=== PATIENT | female | born 1960 | race Caucasian/White ===

== ENCOUNTER 2023-07-13 09:23 | Outpatient (OUT) | payer BC, MEDICARE, SELFPAY ==
--- NOTE | 2023-07-13 09:51 | XR_ITS ---
The [address] [address] Patient Name: FELIZ URBINA MRN: [id number] date: 1960 Sex: F Assigned Patient Location: LAB Current Patient Location: Accession/Order Number: [id number] Exam Date: 07/13/2023 10:00 Report Date: 07/14/2023 01:54 At the request of: ALBA DORANTES Procedure: XR hip RT 2V w/ pelvis EXAM: XR hip RT 2V w/ pelvis HISTORY: Right Hip Pain COMPARISON: None. TECHNIQUE: 3 view study FINDINGS: Overall bony architecture is normal. There is mild hip joint space narrowing bilaterally, more visible on the left than on the right. The symphysis pubis is narrowed. There are findings associated with previous lower lumbar laminectomy and fusion. A stimulator device is projected over the left ilium. XR/XR hip RT 2V w/ pelvis IMPRESSION: Mild hip joint space narrowing bilaterally consistent with early degenerative arthritis. No evidence for acute fracture or traumatic malalignment. Electronically authenticated by: Verónica WARREN Date: 07/14/2023 01:54
[2023-07-13 09:54] LABS: Basophils Absolute Auto 0.1 10^3/uL (0.0-0.1); Basophils Percent Auto 1.2 % (0.2-2.0); Eosinophils Absolute Auto 0.1 10^3/uL (0.0-0.7); Eosinophils Percent Auto 1.8 % (0.9-7.0); Hematocrit 43.1 % (36.0-48.0); Hemoglobin 14.9 g/dL (12.0-16.0); Immature Granulocytes Abs Auto 0.06 10^3/uL (0.00-0.03); Immature Granulocytes Pct Auto 0.8 % (0.0-0.5); Lymphocytes Absolute Auto 2.6 10^3/uL (1.2-3.8); Lymphocytes Percent Auto 33.4 % (20.5-60.0); Mean Corpuscular HGB Conc 34.6 g/dL (29.9-35.2); Mean Corpuscular Hemoglobin 31.8 pg (26.7-34.0); Mean Corpuscular Volume 92.1 fL (81.0-99.0); Monocytes Absolute Auto 0.5 10^3/uL (0.3-0.8); Monocytes Percent Auto 6.8 % (1.7-12.0); Neutrophils Absolute Auto 4.4 10^3/uL (1.4-6.5); Platelet Count 296 10^3/uL (150-450); Red Blood Count 4.68 10^6/uL (4.20-5.40); Red Cell Distribution Width 12.5 % (11.0-15.0); White Blood Count 7.8 10^3/uL (4.0-11.0)
[2023-07-13 10:55] LABS: Anion Gap 14.5; BUN Creatinine Ratio 21.6; Bilirubin Total 0.6 mg/dL (0.2-1.0); Calcium 9.5 mg/dL (8.5-10.1); Carbon Dioxide 22.7 mmol/L (21.0-32.0); Chloride 104 mmol/L (98-107); Estimated GFR (African America >60 (>=60); Estimated GFR (Non-African Ame >60 (>=60); Glucose 92 mg/dL (74-106); Magnesium 1.8 mg/dL (1.8-2.4); Potassium 4.2 mmol/L (3.5-5.1); Sodium 137 mmol/L (136-145)
[2023-07-13 10:56] LABS: Alanine Aminotransferase 29 U/L (14-59); Albumin Level 3.9 g/dL (3.4-5.0); Alkaline Phosphatase 90 U/L (46-116); Aspartate Amino Transferase 16 U/L (15-37); Chol HDL Ratio 3.7; Cholesterol 182 mg/dL (<=200); Globulin 3.9 g/dL; HDL Cholesterol 49 mg/dL (40-60); Total Protein 7.8 g/dL (6.4-8.2); Triglycerides 124 mg/dL (<=150); VLDL CHOLESTEROL 24.8 mg/dL
[2023-07-13 10:57] LABS: Free T3 1.81 pg/mL (2.18-3.98); Thyroid Stimulating Hormone 1.483 uIU/mL (0.358-3.740)
[2023-07-13 12:25] LABS: Estimated Average Glucose 105 mg/dL; Glycohemoglobin A1C 5.3 % (4.5-6.2)
[2023-07-14 11:09] LABS: Insulin 8.7 uIU/mL (2.6-24.9)
== END 2023-07-13 09:24 | disposition home or self-care (01) ==
LOC: LAB 09:27
PROVIDERS: PCP Family Medicine; Visit Provider Family Medicine
DX: M25.551 Pain in right hip (principal); M16.11 Unilateral primary osteoarthritis, right hip; Z00.00 Encounter for general adult medical examination without abnormal findings; I10 Essential (primary) hypertension
CPT/HCPCS: 36415; 73502; 80053; 80061; 82306; 83036; 83525; 83540; 83735; 84436; 84443; 84481; 85025

== ENCOUNTER 2023-07-23 10:00 | Outpatient (OUT) | payer BC, MEDICARE, SELFPAY ==
--- NOTE | 2023-07-23 | CT_ITS ---
[address] [address] Patient Name: FELIZ URBINA MRN: [id number] date: 1960 Sex: F Assigned Patient Location: CT Current Patient Location: Accession/Order Number: [id number] Exam Date: 07/23/2023 10:47 Report Date: 07/24/2023 07:16 At the request of: ALBA DORANTES Procedure: CT lung screening low-dose EXAMINATION: CT lung screening low-dose HISTORY: Hypertension , shortness of breath COMPARISON: No relevant comparison available. TECHNIQUE: Axial, Coronal, and Sagittal images were created without the administration of IV contrast material. Dose reduction techniques were achieved by using automated exposure control and/or adjustment of mA and/or kV according to patient size and/or use of iterative reconstruction technique. FINDINGS: LUNGS: 6 mm nodule within anterior medial left upper lobe at level of hilum. A few 3-4 mm nodules scattered within the lungs. No acute infiltrates or significant chronic interstitial changes. PLEURA: No mass, effusion, or pneumothorax. VASCULATURE: No abnormality. GEOFFREY: No mass or pathologic adenopathy. MEDIASTINUM: No mass or pathologic adenopathy. CARDIAC: No enlargement, pericardial thickening, or significant calcification. AORTA: No aneurysm or dissection. CHEST WALL: No mass or axillary adenopathy BONES: No bone lesion or fracture. LIMITED ABDOMEN: No suspicious findings. Limited images of the upper abdomen. OTHER: Neurostimulator electrode within central spinal canal of mid thoracic spine. CT/CT lung screening low-dose IMPRESSION: 1. Lung-RADS Category 3- Probably benign. Probably benign finding(s)- short term follow up suggested; includes nodules with a low likelihood of becoming a clinically active cancer. Six month LDCT. Electronically authenticated by: ERICKA REYNOLDS Date: 07/24/2023 07:16
--- NOTE | 2023-07-23 | MM_ITS ---
Patient: FELIZ URBINA Exam Date: 07/23/2023 : 1960 Gender:F Ordering : DR George Pantoja . Admission #: [id number] Family : Order #: [id number] CLICK HERE TO VIEW EXAM RADIOLOGY REPORT PROCEDURE: MM TOMOSYNTHESIS SCREENING BI COMPARISON: MG MAMM SCREEN 3D DIANA CAD, 01/08/2022. MG MAMM DIANA SCRN W CAD DIG, 07/01/2016. INDICATIONS: screening mammogram Calculator Name NCI Breast Cancer Risk Assessment Tool 5 Year Breast Cancer Risk 1.20% Lifetime Breast Cancer Risk 4.70% Personal Breast Cancer No Personal Ovarian Cancer No Treatments None Family Cancers Mother with lung cancer at age 42. LOCATION: [facility] BREAST COMPOSITION: Scattered areas fibroglandular density. FINDINGS: DIAGNOSTIC CATEGORY 2--BENIGN FINDING: RIGHT BREAST: No significant suspicious finding. Scattered benign-appearing lymph nodes are present. No significant change has occurred. LEFT BREAST: No significant suspicious finding. Scattered benign-appearing lymph nodes are present. No significant change has occurred. RECOMMENDATIONS: ROUTINE MAMMOGRAM AND CLINICAL EVALUATION IN 12 MONTHS. PLEASE NOTE: A NORMAL MAMMOGRAM DOES NOT EXCLUDE THE POSSIBILITY OF BREAST CANCER. A CLINICALLY SUSPICIOUS PALPABLE LUMP SHOULD BE BIOPSIED. Dictated by: Mamadou Carlos M.D. on 07/23/2023 at 13:38 Approved by: Mamadou Carlos M.D. on 07/23/2023 at 13:42
== END 2023-07-23 10:01 | disposition home or self-care (01) ==
LOC: CT 10:01
PROVIDERS: PCP Family Medicine; Visit Provider Family Medicine
DX: Z12.31 Encounter for screening mammogram for malignant neoplasm of breast (principal); M25.551 Pain in right hip; Z80.1 Family history of malignant neoplasm of trachea, bronchus and lung; Z12.2 Encounter for screening for malignant neoplasm of respiratory organs; F17.210 Nicotine dependence, cigarettes, uncomplicated
CPT/HCPCS: 71271; 77063; 77067

== ENCOUNTER 2023-11-12 08:10 | Outpatient (OUT) | payer BC, MEDICARE, SELFPAY ==
--- NOTE | 2023-11-12 08:14 | CT_ITS ---
The [address] [address] Patient Name: FELIZ URBINA MRN: [id number] date: 1960 Sex: F Assigned Patient Location: CT Current Patient Location: CT Accession/Order Number: [id number] Exam Date: 11/12/2023 08:30 Report Date: 11/12/2023 09:07 At the request of: ALBA DORANTES Procedure: CT chest wo con CT chest wo con, 11/12/2023 8:30 AM EST INDICATION: Lung Nodule R91.1 COMPARISON: CT scan of the chest 07/23/2023 TECHNIQUE: Thin-section axial CT images of the chest were acquired without contrast. Supplemental 2D reformatted images were generated and reviewed as needed. Dose reduction techniques were achieved by using automated exposure control and/or adjustment of mA and/or kV according to patient size and/or use of iterative reconstruction technique. FINDINGS: Heart size within normal limits. No pericardial effusion. Moderate coronary artery calcification and calcified atherosclerotic change within a normal caliber aorta. No mediastinal or axillary lymphadenopathy. No central endobronchial nodule. Diffuse bronchial wall thickening with focal areas of faint mosaic attenuation. No lobar consolidation, pleural effusion or pneumothorax. Multiple 2 to 3 mm juxtapleural nodules right upper lobe, grossly unchanged. 3 to 4 mm noncalcified nodules bilaterally grossly unchanged. No new suspicious pulmonary nodule. Reference nodules as follows: Stable 4 mm left upper lobe nodule (3, 28) 5 mm left upper lobe nodule, previously 6 mm (3, 39) Stable 4 mm left upper lobe juxtapleural nodule (3, 38) Stable 4 mm right lower lobe nodule (3, 46) Cholecystectomy. Spondylosis Spinal stimulator electrodes epidural space thoracic spine. No acute fracture. CT/CT chest wo con IMPRESSION: Stable subcentimeter pulmonary nodules. Lung RADS category 2: Benign. LT CT scan of the chest in one year recommended. Electronically authenticated by: JACKELYN PAGE Date: 11/12/2023 09:07
[2023-11-12 15:44] LABS: Thyroid Stimulating Hormone 1.485 uIU/mL (0.358-3.740)
[2023-11-12 15:49] LABS: Free T4 0.97 ng/dL (0.76-1.46)
== END 2023-11-12 08:11 | disposition home or self-care (01) ==
PROVIDERS: PCP Family Medicine; Visit Provider Family Medicine
DX: R91.1 Solitary pulmonary nodule (principal); R79.89 Other specified abnormal findings of blood chemistry
CPT/HCPCS: 36415; 71250; 84439; 84443

== ENCOUNTER 2024-06-01 10:23 | Outpatient (OUT) | payer BC, MEDICARE, SELFPAY ==
--- OUTSIDE RECORDS SUMMARY | 2024-06-01 10:43 | XMS_ITS | CCD ---
Author Organization [facility] Care Team Providers Care Strip Catcher Name Role Phone JAYNA, DR WILLIS Attending Unavailable JASONY, DR WILLIS Primary Care Unavailable JASONY, DR WILLIS Admitting Unavailable HOY, DR WILLIS Attending Unavailable JASONY, DR WILLIS Consulting Unavailable JASONY, DR WILLIS Primary Care Unavailable HOY, DR WILLIS Admitting Unavailable HOY, DR WILLIS Consulting Unavailable HOY, DR WILLIS Primary Care Unavailable JAYNA, DR WILLIS Admitting Unavailable JAYNA, DR WILLIS Attending Unavailable DR MAMADOU CARLOS Consulting Unavailable Problems Active Problems Problem Classification Problem Date Documented Date Episodic/Chronic Diabetes mellitus without complication (1 source) Type 2 diabetes mellitus without complications; Translations: [TYPE 2 DM WITHOUT COMPLICATIONS] Onset: 01-10-2022 Chronic Essential hypertension (1 source) Essential (primary) hypertension; Translations: [ESSENTIAL PRIMARY HYPERTENSION] Onset: 01-10-2022 Chronic Spondylosis; intervertebral disc disorders; other back problems (1 source) Other intervertebral disc displacement, lumbar region; Translations: [OTH IV DISC DISPLACEMENT LUMBAR RGN] Onset: 01-10-2022 Chronic Past or Other Problems Problem Classification Problem Date Documented Da te Episodic/Chronic Other bone disease and musculoskeletal deformities (1 source) Other specified disorders of bone density and structure, unspecified site; Translations: [OTH D/O BONE DEN STRUCT UNS SITE] Onset: 01-10-2022 Episodic Other screening for suspected conditions (not mental disorders or infectious disease) (5 sources) Encounter for screening mammogram for malignant neoplasm of breast; Translations: [Encounter for screening for osteoporosis] Onset: 01-08-2022 Episodic Results Test Name Value Interpretation Reference Range Facil ity Patient Letter FTMCon 2022 Patient Letter [facility] May 25, 2023 FELIZ URBINA [address] [place] [address] : 1960 Dear Feliz, This is a SECOND ATTEMPT to remind you that you are due for an appointment with [facility]. Please contact our office at [phone] to schedule an appointment at your earliest convenience. Thank you, [facility] Reminderson 05-25-2023 Reminders - From: Kristine Peralta To: [facility] - Reminders/Recalls; Sent: 04/08/2023 15:25:27 EDT Show up: 04/08/2023 15:26:00 EDT Subject: Ambulatory Reminder Reminder/Recall 10 year colon recall melanie mueller 04/03 first recall letter second recall letter Normal [facility] Patient Letter FTMCon 2022 Patient Letter FT April 13, 2023 [facility] [address] : 1960 Dear Feliz, This is a reminder that you are due for an appointment with [facility]. Please contact our office at [phone] to schedule an appointment at your earliest convenience. Thank you, [facility] CBC AUTO DIFFon 09-01-2022 BASO # 0.1 103/ul Normal 0.0-0.1 [facility] Comment on above: Performed By: #### C BC #### [facility] [address] [place] [address] Dr. Sai Rice Basophils/100 WBC (Bld) 1.2 % Normal 0.2-2.0 [facility] Comment on above: Performed By: #### C BC #### [facility] [address] [place] [address] Dr. Sai Rice EO # 0.3 103/ul Normal 0.0-0.7 [facility] Comment on above: Performed By: #### C BC #### [facility] [address] [place] [address] Dr. Sai Rice Eosinophils/100 WBC (Bld) 3.4 % Normal 0.9-7.[address] [facility] Comment on above: Performed By: #### C BC #### [facility] [address] [place] [address] Dr. Sai Rice Erythrocyte distribution width (RBC) [Ratio] 12.9 % Normal 11.0-15.[address] [facility] Comment on above: Performed By: #### C BC #### [facility] [address] [place] [address] Dr. Sai Rice Hematocrit (Bld) [Volume fraction] 40.9 % Normal 36.0-48.[address] [facility] Comment on above: Performed By: #### C BC #### [facility] [address] [place] [address] Dr. Sai Rice Hemoglobin (Bld) [Mass/Vol] 14.4 g/dL Normal 12.0-16.[address] [facility] Comment on above: Performed By: #### C BC #### [facility] [address] [place] [address] Dr. Sai Rice IG # 0.02 10e3/ul Normal 0.00-0.[address] [facility] Comment on above: Performed By: #### C BC #### [facility] [address] [place] [address] Dr. Sai Rice IG % 0.3 % Normal 0.0-0.5 [facility] Comment on above: Performed By: #### C BC #### [facility] [address] [place] [address] Dr. Sai Rice LYMPH # 2.3 103/ul Normal 1.2-3.8 [facility] Comment on above: Performed By: #### C BC #### [facility] [address] [place] [address] Dr. Sai Rice Lymphocytes/100 WBC (Bld) 31.1 % Normal 20.5-60.[address] [facility] Comment on above: Performed By: #### C BC #### [facility] [address] [place] [address] Dr. Sai Rice MANUAL DIFF REQ NO Normal [facility] Comment on above: Performed By: #### C BC #### [facility] [address] [address] [address] Sai Rice MCH (RBC) [Entitic mass] 32.0 pg Normal 26.7-34.[address] [facility] Comment on above: Performed By: #### C BC #### [facility] [address] [place] [address] Dr. Sai Rice MCHC (RBC) [Mass/Vol] 35.2 g/dL Normal 29.9-35.[address] [facility] Comment on above: Performed By: #### C BC #### [facility] [address] [place] [address] Dr. Sai Rice MCV (RBC) [Entitic vol] 90.9 fL Normal 81.0-99.[address] [facility] Comment on above: Performed By: #### C BC #### [facility] [address] [place] [address] Dr. Sai Rice MONO # 0.6 103/ul Normal 0.3-0.[address] [facility] Comment on above: Performed By: #### C BC #### [facility] [address] [place] [address] Dr. Sai Rice Monocytes/100 WBC (Bld) 8.3 % Normal 1.7-12.[address] [facility] Comment on above: Performed By: #### C BC #### [facility] [address] [place] [address] Dr. Sai Rice NEUT # 4.1 103/ul Normal 1.4-6.[address] [facility] Comment on above: Performed By: #### C BC #### [facility] [address] [place] [address] Dr. Sai Rice Neutrophils/100 WBC (Bld) 55.7 % Normal 43.0-75.[address] [facility] Comment on above: Performed By: #### C BC #### [facility] [address] [place] [address] Dr. Sai Rice Platelet mean volume (Bld) [Entitic vol] 10.0 fL Normal 9.5-13.[address] [facility] Comment on above: Performed By: #### C BC #### [facility] [address] [place] [address] Dr. Sai Rice PLT 268 103/ul Normal 150-[address] [facility] Comment on above: Performed By: #### C BC #### [facility] [address] [place] [address] Dr. Sai Rice RBC 4.50 106/ul Normal 4.20-5.[address] [facility] Comment on above: Performed By: #### C BC #### [facility] [address] [place] [address] Dr. Sai Rice WBC 7.3 103/ul Normal 4.0-11.[address] [facility] Comment on above: Performed By: #### C BC #### [facility] [address] [place] [address] Dr. Sai Rice FREE THYROXINE INDEX T7on FTI 2.07 Normal 1.30-4.[address] [facility] Comment on above: Performed By: #### L IPID, T7, CMP, TSH #### [facility] [address] [place] [address] Dr. Sai Rice T3U 35.0 % Normal 30.0-39.[address] [facility] Comment on above: Performed By: #### L IPID, T7, CMP, TSH #### [facility] [address] [place] [address] Dr. Sai Rice T4 [Mass/Vol] 5.90 ug/dL Normal 4.80-13.90 [facility] Comment on above: Performed By: #### L IPID, T7, CMP, TSH #### [facility] [address] [place] [address] Dr. Sai Rice GLYCOHEMOGLOBIN A1Con 2021 ADA RECOMMENDATION SEE BELOW Normal [facility] Comment on above: Result Comment: ADA RECOMMENDED LIMIT 4.0 - 6.0 ADA THERAPEUTIC TARGET < 7.0 ACTION SUGGESTED > 7.0 Performed By: #### A 1C #### [facility] [address] [address] [address] Sai Rice Glucose [Mass/Vol] 111 mg/dL Normal [facility] Comment on above: Performed By: #### A 1C #### [facility] [address] [address] [address] Sai Rice HbA1c (Bld) [Mass fraction] 5.5 % Normal 4.5-6.[address] [facility] Comment on above: Performed By: #### A 1C #### [facility] [address] [address] [address] Sai Rice IRONon 09-01-2022 Iron [Mass/Vol] 59.0 ug/dL Normal 50.0-170.0 [facility] Comment on above: Performed By: #### V ITAD, IRON #### [facility] [address] [place] [address] Dr. Sai Rice LIPID PROFILEon 09-01-2022 CHOL-HDL RATIO NORM SEE BELOW Normal [facility] Comment on above: Result Comment: 3.3 - 4.4 LOW RISK 4.4 - 7.1 AVERAGE RISK 7.1 - 11.0 MODERATE RISK >11.0 HIGH RISK Performed By: #### L IPID, T7, CMP, TSH #### [facility] [address] [place] [address] Dr. Sai Rice Cholesterol [Mass/Vol] 169 mg/dL Normal <=[address] [facility] Comment on above: Performed By: #### L IPID, T7, CMP, TSH #### [facility] [address] [address] [address] Sai Rice Cholesterol in HDL [Mass/Vol] 49 mg/dL Normal 40-[address] [facility] Comment on above: Performed By: #### L IPID, T7, CMP, TSH #### [facility] [address] [address] [address] Sai Rice Cholesterol in LDL [Mass/Vol] 92.4 mg/dL Normal [facility] Comment on above: Performed By: #### L IPID, T7, CMP, TSH #### [facility] [address] [place] [address] Dr. Sai Rice Cholesterol.total/Cho lesterol in HDL [Mass ratio] 3.4 {ratio} Normal [facility] Comment on above: Performed By: #### L IPID, T7, CMP, TSH #### [facility] [address] [address] [address] Sai Rice HDL NORMAL > or = 60 mg/dl - LOW CARDIOVASCULAR RISK <40 mg/dl - HIGH CARDIOVASCULAR RISK Normal [facility] Comment on above: Performed By: #### L IPID, T7, CMP, TSH #### [facility] [address] [address] [address] Sai Rice LDL CALC NORMAL SEE BELOW Normal [facility] Comment on above: Result Comment: <100 mg/dl OPTIMAL 100 - 129 mg/dl NEAR OR ABOVE OPTIMAL 130 - 159 mg/dl BORDERLINE HIGH 160 - 189 mg/dl HIGH >190 mg/dl VERY HIGH Performed By: #### L IPID, T7, CMP, TSH #### [facility] [address] [address] [address] Sai Rice Triglyceride [Mass/Vol] 138 mg/dL Normal <=[address] [facility] Comment on above: Performed By: #### L IPID, T7, CMP, TSH #### [facility] [address] [address] [address] Sai Rice VLDL CALC 27.6 mg/dL Normal [facility] Comment on above: Performed By: #### L IPID, T7, CMP, TSH #### [facility] [address] [address] [address] Sai Rice PROF 14(COMP METB)on 022 Albumin [Mass/Vol] 3.8 g/dL Normal 3.4-5.0 [facility] Comment on above: Performed By: #### L IPID, T7, CMP, TSH #### [facility] [address] [address] [address] Sai Rice Albumin/Globulin [Mass ratio] 1.0 {ratio} Normal [facility] Comment on above: Performed By: #### L IPID, T7, CMP, TSH #### [facility] [address] [address] [address] Sai Rice ALP [Catalytic activity/Vol] 78 U/L Normal 46-[address] [facility] Comment on above: Performed By: #### L IPID, T7, CMP, TSH #### [facility] [address] [address] [address] Sai Rice ALT [Catalytic activity/Vol] 21 U/L Normal 14-[address] [facility] Comment on above: Performed By: #### L IPID, T7, CMP, TSH #### [facility] [address] [address] [address] Sai Rice Anion gap [Moles/Vol] 9.0 mmol/L Normal [facility] Comment on above: Performed By: #### L IPID, T7, CMP, TSH #### [facility] [address] [place] [address] Dr. Sai Rice AST [Catalytic activity/Vol] 15 U/L Normal 15-[address] [facility] Comment on above: Performed By: #### L IPID, T7, CMP, TSH #### [facility] [address] [address] [address] Sai Rice Bilirubin [Mass/Vol] 0.4 mg/dL Normal 0.2-1.[address] [facility] Comment on above: Performed By: #### L IPID, T7, CMP, TSH #### [facility] [address] [address] [address] Sai Rice Calcium [Mass/Vol] 9.2 mg/dL Normal 8.5-10.1 [facility] Comment on above: Performed By: #### L IPID, T7, CMP, TSH #### [facility] [address] [address] [address] Sai Rice Chloride [Moles/Vol] 106 mmol/L Normal 98-[address] [facility] Comment on above: Performed By: #### L IPID, T7, CMP, TSH #### [facility] [address] [address] [address] Sia Rice CO2 [Moles/Vol] 28.2 mmol/L Normal 21.0-32.0 [facility] Comment on above: Performed By: #### L IPID, T7, CMP, TSH #### [facility] [address] [address] [address] Sai Rice Creatinine [Mass/Vol] 0.76 mg/dL Normal 0.55-1.[address] [facility] Comment on above: Performed By: #### L IPID, T7, CMP, TSH #### [facility] [address] [address] [address] Sai Rice EGFR-AF ISRAELI >60 Normal >=60 [facility] Comment on above: Performed By: #### L IPID, T7, CMP, TSH #### [facility] [address] [place] [address] Dr. Sai Rice EGFR-NON AF ISRAELI >60 Normal >=[address] [facility] Comment on above: Performed By: #### L IPID, T7, CMP, TSH #### [facility] [address] [place] [address] Dr. Sai Rice Globulin (S) [Mass/Vol] 3.8 g/dL Normal [facility] Comment on above: Performed By: #### L IPID, T7, CMP, TSH #### [facility] [address] [address] [address] Sai Rice Glucose [Mass/Vol] 90 mg/dL Normal 74-106 [facility] Comment on above: Performed By: #### L IPID, T7, CMP, TSH #### [facility] [address] [address] [address] Sai Rice Potassium [Moles/Vol] 4.2 mmol/L Normal 3.5-5.1 [facility] Comment on above: Performed By: #### L IPID, T7, CMP, TSH #### [facility] [address] [address] [address] Sai Rice Protein [Mass/Vol] 7.6 g/dL Normal 6.4-8.2 [facility] Comment on above: Performed By: #### L IPID, T7, CMP, TSH #### [facility] [address] [place] [address] Dr. Sai Rice Sodium [Moles/Vol] 139 mmol/L Normal 136-145 [facility] Comment on above: Performed By: #### L IPID, T7, CMP, TSH #### [facility] [address] [place] [address] Dr. Sai Rice Urea nitrogen [Mass/Vol] 16.0 mg/dL Normal 7.0-18.[address] [facility] Comment on above: Performed By: #### L IPID, T7, CMP, TSH #### [facility] [address] [place] [address] Dr. Sai Rice Urea nitrogen/Creatinine [Mass ratio] 21.1 mg/mg Normal [facility] Comment on above: Performed By: #### L IPID, T7, CMP, TSH #### [facility] [address] [place] [address] Dr. Sai Rice TSHon 09-01-2022 TSH 2.761 uIU/mL Normal 0.358-3.740 [facility] Comment on above: Performed By: #### L IPID, T7, CMP, TSH #### [facility] [address] [place] [address] Dr. Sai Rice VITAMIN D 25 OHon 09-01-2022 VIT D 25-OH 12.1 ng/mL Normal [facility] Comment on above: Performed By: #### V LEANN, IRON #### [facility] [address] [place] [address] Dr. Sai Rice VIT D RANGES SEE BELOW Normal [facility] Comment on above: Result Comment: <20 ng/mL Vit D deficient 20 - <30 ng/mL Vit D insufficient 30 - 100 ng/mL Vit D sufficient >100 ng/mL Potential Toxicity Performed By: #### V ITAD, IRON #### [facility] [address] [place] [address] Dr. Sai Rice MG MAMM SCREEN 3D DIANA CADon 01-08-2022 MG MAMM SCREEN 3D DIANA CAD Patient: FELIZ URBINA Exam Date: 01/08/2022 : 1960 Gender:F Ordering : DR ALBA DORANTES . Admission #: [id number] Family : Order #: [id number] CLICK HERE TO VIEW EXAM RADIOLOGY REPORT PROCEDURE: MAMMOGRAM SCREENING 3D BILATERAL CAD COMPARISON: MG MAMM DIANA SCRN W CAD DIG, 07/01/2016. INDICATIONS: Screening mammography Calculator Name NCI Breast Cancer Risk Assessment Tool 5 Year Breast Cancer Risk 1.10% Lifetime Breast Cancer Risk 5.00% Personal Breast Cancer No Personal Ovarian Cancer No Treatments None Family Cancers Mother with lung cancer at age 42. LOCATION: [facility] BREAST COMPOSITION: Scattered areas fibroglandular density. FINDINGS: DIAGNOSTIC CATEGORY 2--BENIGN FINDING: RIGHT BREAST: No significant suspicious finding. No significant change has occurred. LEFT BREAST: No significant suspicious finding. Stable lymph nodes and asymmetric fibroglandular tissue within the posterior upper-outer quadrant. No significant change has occurred. RECOMMENDATIONS: ROUTINE MAMMOGRAM AND CLINICAL EVALUATION IN 12 MONTHS. PLEASE NOTE: A NORMAL MAMMOGRAM DOES NOT EXCLUDE THE POSSIBILITY OF BREAST CANCER. A CLINICALLY SUSPICIOUS PALPABLE LUMP SHOULD BE BIOPSIED. Dictated by: Mamadou Carlos M.D. on 01/08/2022 at 15:37 Approved by: Mamadou Carlos M.D. on 01/08/2022 at 15:[address] [facility] XR DEXA BONE DENSITYon 01-08 XR DEXA BONE DENSITY EXAMINATION: XR DEX A BONE DENSITY, 01/08/2022 11:12 AM EDT HISTORY: Screening for osteoporosis COMPARISON: None. TECHNIQUE: Dual-energy X-ray absorptiometry (DEXA) bone density study performed for the axial skeleton. FINDINGS: FOREARM ANALYSIS: Average bone mineral density is 0.698 g/cm2. T-score (standard deviation relative to young adult mean): -0.2 . HIP ANALYSIS: Lowest bone mineral density is within the left femoral trochanter, 0.721 g/cm2. T-score (standard deviation relative to young adult mean): -1.1 . IMPRESSION: World Perez Organization Classification: Osteopenia - Moderate Fracture Risk Electronically authenticated by: MAMADOU CARLOS Date: 2022-01-08 14:[address] [facility] Encounters Encounter Date Encounter Type Care Provider Facility Start: 04-08-2023 ambulatory Facility:[facility] Start: 09-03-2022 Encounter for genera l adult medical examination without abnormal findings DR ALBA DORANTES [facility] Start: 09-01-2022 End: 09-02-[address] ALBA DORANTES Facility:[facility] Start: 09-01-2022 End: 09-02-2022 Encounter for general adult medical examination without abnormal findings DR ALBA DORANTES Facility:[facility] Start: 06-05-[address] ALBA DORANTES Facility :[facility] Start: 01-08-2022 End: 01-09-[address] ALBA DORANTSE Facility:[facility] Payers Date Payer Category Payer Medicare [id number] 2018 Unknown 1960 Medicare [id number] 1960 Self-pay [id number] 1960 Unknown [id number] 1960 Unknown [id number] 2.16.84 [id number] 1960 Unknown [id number] 2.16.84 [id number] 1960 Unknown [id number] 2.16.84 [id number] 1960 Unknown [id number] 2.16.8 [id number] Summary Purpose Family History No Family History Records FoundNo Family History Records Found Advance Directives No Advanced Directives Records FoundNo Advanced Directives Records Found Additional Source Comments INFORMATION SOURCE (unrecogn ized section and content) DATE CREATED AUTHOR 10/01/2022 [facility] DATE CREATED AUTHOR AUTHOR'S ORGANIZ ATION 05/25/2023 [facility] FOR RECORDS PERTAINING TO PATIENTS WHO ARE OR HAVE BEEN ENROLLED IN A CHEMICAL DEPENDENCY/SUBSTANCEABUSE PROGRAM, SOME INFORMATION MAY BE OMITTED. This clinical summary was aggregated from multiple sources. Caution should be exercised in using it in the provision of clinical care. This summary normalizes information from multiple sources, and as a consequence, information in this document may materially change the coding, format and clinical context of patient data. In addition, data may be omitted in some cases. CLINICAL DECISIONS SHOULD BE BASED ON THE PRIMARY CLINICAL RECORDS. [email or web address]. provides no warranty or guarantee of the accuracy or completeness of information in this document.
[2024-06-01 11:24] LABS: Basophils Absolute Auto 0.1 10^3/uL (0.0-0.1); Basophils Percent Auto 1.2 % (0.2-2.0); Eosinophils Absolute Auto 0.3 10^3/uL (0.0-0.7); Eosinophils Percent Auto 3.3 % (0.9-7.0); Hematocrit 43.4 % (36.0-48.0); Immature Granulocytes Abs Auto 0.02 10^3/uL (0.00-0.03); Immature Granulocytes Pct Auto 0.2 % (0.0-0.5); Lymphocytes Absolute Auto 2.8 10^3/uL (1.2-3.8); Lymphocytes Percent Auto 32.8 % (20.5-60.0); Mean Corpuscular HGB Conc 34.6 g/dL (29.9-35.2); Mean Corpuscular Volume 92.5 fL (81.0-99.0); Mean Platelet Volume 10.6 fL (9.5-13.5); Monocytes Absolute Auto 0.8 10^3/uL (0.3-0.8); Monocytes Percent Auto 9.3 % (1.7-12.0); Neutrophils Absolute Auto 4.5 10^3/uL (1.4-6.5); Neutrophils Percent Auto 53.2 % (43.0-75.0); Platelet Count 277 10^3/uL (150-450); Red Blood Count 4.69 10^6/uL (4.20-5.40); Red Cell Distribution Width 12.7 % (11.0-15.0); White Blood Count 8.4 10^3/uL (4.0-11.0)
[2024-06-01 11:53] LABS: Estimated Average Glucose 103 mg/dL; Glycohemoglobin A1C 5.2 % (4.5-6.2)
[2024-06-01 12:04] LABS: Alanine Aminotransferase 25 U/L (14-59); Albumin Globulin Ratio 1.1; Albumin Level 3.9 g/dL (3.4-5.0); Alkaline Phosphatase 85 U/L (46-116); Anion Gap 13.5; Aspartate Amino Transferase 16 U/L (15-37); BUN Creatinine Ratio 18.7; Bilirubin Total 0.7 mg/dL (0.2-1.0); Calcium 9.4 mg/dL (8.5-10.1); Carbon Dioxide 24.7 mmol/L (21.0-32.0); Chloride 104 mmol/L (98-107); Cholesterol 198 mg/dL (<=200); Estimated GFR (African America >60 (>=60); Estimated GFR (Non-African Ame >60 (>=60); Free T3 1.83 pg/mL (2.18-3.98); Globulin 3.4 g/dL; Glucose 86 mg/dL (74-106); HDL Cholesterol 49 mg/dL (40-60); Potassium 4.2 mmol/L (3.5-5.1); Sodium 138 mmol/L (136-145); Thyroid Stimulating Hormone 2.949 uIU/mL (0.358-3.740); Total Protein 7.3 g/dL (6.4-8.2); Triglycerides 219 mg/dL (<=150); VLDL CHOLESTEROL 43.8 mg/dL
[2024-06-02 10:09] LABS: Insulin 5.2 uIU/mL (2.6-24.9)
== END 2024-06-01 10:24 | disposition home or self-care (01) ==
LOC: LAB 10:26
PROVIDERS: PCP Family Medicine; Visit Provider Family Medicine
DX: M51.26 Other intervertebral disc displacement, lumbar region (principal); M25.50 Pain in unspecified joint; I10 Essential (primary) hypertension; E11.9 Type 2 diabetes mellitus without complications; E03.9 Hypothyroidism, unspecified; K21.9 Gastro-esophageal reflux disease without esophagitis; D64.9 Anemia, unspecified
CPT/HCPCS: 36415; 80053; 80061; 83036; 83525; 83540; 84436; 84443; 84481; 85025

== ENCOUNTER 2024-07-06 09:08 | Outpatient (OUT) | payer BC, MEDICARE, SELFPAY ==
--- OUTSIDE RECORDS SUMMARY | 2024-07-06 09:25 | XMS_ITS | CCD ---
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 Please contact our office at [phone] to schedule an appointment at your earliest convenience. Thank you, [facility] Reminderson 05-25-2023 Reminders - From: Kristine Peralta To: [facility] - Reminders/Recalls; Sent: 04/08/2023 15:25:27 EDT Show up: 04/08/2023 15:26:00 EDT Subject: Ambulatory Reminder Reminder/Recall 10 year colon recall melanie mueller 04/03 first recall letter second recall letter Normal [facility] Patient Letter FTMCon 2022 Patient Letter FT April 13, 2023 [facility] [address] [facility] [address] : 1960 Dear Feliz, This is a reminder that you are due for an appointment with [facility]. Please contact our office at [phone] to schedule an appointment at your earliest convenience. Thank you, [facility] CBC AUTO DIFFon 09-01-2022 BASO # 0.1 103/ul Normal 0.0-0.1 [facility] Comment on above: Performed By: #### C BC #### [facility] [address] [place] [address] Dr. Sai Rice Basophils/100 WBC (Bld) 1.2 % Normal 0.2-2.0 [facility] Comment on above: Performed By: #### C BC #### [facility] [address] [place] [address] Dr. Sai Rice EO # 0.3 103/ul Normal 0.0-0.7 [facility] Comment on above: Performed By: #### C BC #### [facility] [address] [place] [address] Dr. Sai Rice Eosinophils/100 WBC (Bld) 3.4 % Normal 0.9-7.0 [facility] Comment on above: Performed By: #### C BC #### [facility] [address] [place] [address] Dr. Sai Rice Erythrocyte distribution width (RBC) [Ratio] 12.9 % Normal 11.0-15.0 [facility] Comment on above: Performed By: #### C BC #### [facility] [address] [place] [address] Dr. Sai Rice Hematocrit (Bld) [Volume fraction] 40.9 % Normal 36.0-48.0 [facility] Comment on above: Performed By: #### C BC #### [facility] [address] [place] [address] Dr. Sai Rice Hemoglobin (Bld) [Mass/Vol] 14.4 g/dL Normal 12.0-16.0 [facility] Comment on above: Performed By: #### C BC #### [facility] [address] [place] [address] Dr. Sai Rice IG # 0.02 10e3/ul Normal 0.00-0.03 [facility] Comment on above: Performed By: #### C BC #### [facility] [address] [place] [address] Dr. Sai Rice IG % 0.3 % Normal 0.0-0.5 [facility] Comment on above: Performed By: #### C BC #### [facility] [address] [place] [address] Dr. Sai Rice LYMPH # 2.3 103/ul Normal 1.2-3.8 [facility] Comment on above: Performed By: #### C BC #### [facility] [address] [place] [address] Dr. Sai Rice Lymphocytes/100 WBC (Bld) 31.1 % Normal 20.5-60.0 [facility] Comment on above: Performed By: #### C BC #### [facility] [address] [place] [address] Dr. Sai Rice MANUAL DIFF REQ NO Normal [facility] Comment on above: Performed By: #### C BC #### [facility] [address] [address] [address] Sai Rice MCH (RBC) [Entitic mass] 32.0 pg Normal 26.7-34.0 [facility] Comment on above: Performed By: #### C BC #### [facility] [address] [place] [address] Dr. Sai Rice MCHC (RBC) [Mass/Vol] 35.2 g/dL Normal 29.9-35.2 [facility] Comment on above: Performed By: #### C BC #### [facility] [address] [place] [address] Dr. Sai Rice MCV (RBC) [Entitic vol] 90.9 fL Normal 81.0-99.0 [facility] Comment on above: Performed By: #### C BC #### [facility] [address] [place] [address] Dr. Sai Rice MONO # 0.6 103/ul Normal 0.3-0.8 [facility] Comment on above: Performed By: #### C BC #### [facility] [address] [place] [address] Dr. Sai Rice Monocytes/100 WBC (Bld) 8.3 % Normal 1.7-12.0 [facility] Comment on above: Performed By: #### C BC #### [facility] [address] [place] [address] Dr. Sai Rice NEUT # 4.1 103/ul Normal 1.4-6.5 [facility] Comment on above: Performed By: #### C BC #### [facility] [address] [place] [address] Dr. Sai Rice Neutrophils/100 WBC (Bld) 55.7 % Normal 43.0-75.0 [facility] Comment on above: Performed By: #### C BC #### [facility] [address] [place] [address] Dr. Sai Rice Platelet mean volume (Bld) [Entitic vol] 10.0 fL Normal 9.5-13.5 [facility] Comment on above: Performed By: #### C BC #### [facility] [address] [place] [address] Dr. Sai Rice PLT 268 103/ul Normal 150-450 [facility] Comment on above: Performed By: #### C BC #### [facility] [address] [place] [address] Dr. Sai Rice RBC 4.50 106/ul Normal 4.20-5.40 [facility] Comment on above: Performed By: #### C BC #### [facility] [address] [place] [address] Dr. Sai Rice WBC 7.3 103/ul Normal 4.0-11.0 [facility] Comment on above: Performed By: #### C BC #### [facility] [address] [place] [address] Dr. Sai Rice FREE THYROXINE INDEX T7on FTI 2.07 Normal 1.30-4.50 [facility] Comment on above: Performed By: #### L IPID, T7, CMP, TSH #### [facility] [address] [place] [address] Dr. Sai Rice T3U 35.0 % Normal 30.0-39.0 [facility] Comment on above: Performed By: #### L IPID, T7, CMP, TSH #### [facility] [address] [place] [address] Dr. Sai Rice T4 [Mass/Vol] 5.90 ug/dL Normal 4.80-13.90 [facility] Comment on above: Performed By: #### L IPID, T7, CMP, TSH #### [facility] [address] [place] [address] Dr. Sai Rice GLYCOHEMOGLOBIN A1Con 2021 ADA RECOMMENDATION SEE BELOW Normal [facility] Comment on above: Result Comment: ADA RECOMMENDED LIMIT 4.0 - 6.0 ADA THERAPEUTIC TARGET < 7.0 ACTION SUGGESTED > 7.0 Performed By: #### A 1C #### [facility] [address] [address] [address] Sai Rice Glucose [Mass/Vol] 111 mg/dL Normal [facility] Comment on above: Performed By: #### A 1C #### [facility] [address] [address] [address] Sai Rice HbA1c (Bld) [Mass fraction] 5.5 % Normal 4.5-6.2 [facility] Comment on above: Performed By: #### A 1C #### [facility] [address] [address] [address] Sai Rice IRONon 09-01-2022 Iron [Mass/Vol] 59.0 ug/dL Normal 50.0-170.0 [facility] Comment on above: Performed By: #### V ITAD, IRON #### [facility] [address] [place] [address] Dr. Sai Rice LIPID PROFILEon 09-01-2022 CHOL-HDL RATIO NORM SEE BELOW Normal [facility] Comment on above: Result Comment: 3.3 - 4.4 LOW RISK 4.4 - 7.1 AVERAGE RISK 7.1 - 11.0 MODERATE RISK >11.0 HIGH RISK Performed By: #### L IPID, T7, CMP, TSH #### [facility] [address] [place] [address] Dr. Sai Rice Cholesterol [Mass/Vol] 169 mg/dL Normal <=200 [facility] Comment on above: Performed By: #### L IPID, T7, CMP, TSH #### [facility] [address] [address] [address] Sai Rice Cholesterol in HDL [Mass/Vol] 49 mg/dL Normal 40-60 [facility] Comment on above: Performed By: #### L IPID, T7, CMP, TSH #### [facility] [address] [address] [address] Sai Rice Cholesterol in LDL [Mass/Vol] 92.4 mg/dL Normal [facility] Comment on above: Performed By: #### L IPID, T7, CMP, TSH #### [facility] [address] [place] [address] Dr. Sai Rice Cholesterol.total/Cho lesterol in HDL [Mass ratio] 3.4 {ratio} Normal [facility] Comment on above: Performed By: #### L IPID, T7, CMP, TSH #### [facility] [address] [address] [address] Sai Rice HDL NORMAL > or = 60 mg/dl - LOW CARDIOVASCULAR RISK <40 mg/dl - HIGH CARDIOVASCULAR RISK Normal [facility] Comment on above: Performed By: #### L IPID, T7, CMP, TSH #### [facility] [address] [address] [address] Sai Rice LDL CALC NORMAL SEE BELOW Normal [facility] Comment on above: Result Comment: <100 mg/dl OPTIMAL 100 - 129 mg/dl NEAR OR ABOVE OPTIMAL 130 - 159 mg/dl BORDERLINE HIGH 160 - 189 mg/dl HIGH >190 mg/dl VERY HIGH Performed By: #### L IPID, T7, CMP, TSH #### [facility] [address] [address] [address] Sai Rice Triglyceride [Mass/Vol] 138 mg/dL Normal <=150 [facility] Comment on above: Performed By: #### L IPID, T7, CMP, TSH #### [facility] [address] [address] [address] Sai Rice VLDL CALC 27.6 mg/dL Normal [facility] Comment on above: Performed By: #### L IPID, T7, CMP, TSH #### [facility] [address] [address] [address] Sai Rice PROF 14(COMP METB)on 022 Albumin [Mass/Vol] 3.8 g/dL Normal 3.4-5.0 [facility] Comment on above: Performed By: #### L IPID, T7, CMP, TSH #### [facility] [address] [address] [address] aSi Rice Albumin/Globulin [Mass ratio] 1.0 {ratio} Normal [facility] Comment on above: Performed By: #### L IPID, T7, CMP, TSH #### [facility] [address] [address] [address] Sai Rice ALP [Catalytic activity/Vol] 78 U/L Normal 46-116 [facility] Comment on above: Performed By: #### L IPID, T7, CMP, TSH #### [facility] [address] [address] [address] Sai Rice ALT [Catalytic activity/Vol] 21 U/L Normal 14-59 [facility] Comment on above: Performed By: #### L IPID, T7, CMP, TSH #### [facility] [address] [address] [address] Sai Rice Anion gap [Moles/Vol] 9.0 mmol/L Normal [facility] Comment on above: Performed By: #### L IPID, T7, CMP, TSH #### [facility] [address] [place] [address] Dr. Sai Rice AST [Catalytic activity/Vol] 15 U/L Normal 15-37 [facility] Comment on above: Performed By: #### L IPID, T7, CMP, TSH #### [facility] [address] [address] [address] Sai Rice Bilirubin [Mass/Vol] 0.4 mg/dL Normal 0.2-1.0 [facility] Comment on above: Performed By: #### L IPID, T7, CMP, TSH #### [facility] [address] [address] [address] Sai Rice Calcium [Mass/Vol] 9.2 mg/dL Normal 8.5-10.1 [facility] Comment on above: Performed By: #### L IPID, T7, CMP, TSH #### [facility] [address] [address] [address] Sai Rice Chloride [Moles/Vol] 106 mmol/L Normal 98-107 [facility] Comment on above: Performed By: #### L IPID, T7, CMP, TSH #### [facility] [address] [address] [address] Sai Rice CO2 [Moles/Vol] 28.2 mmol/L Normal 21.0-32.0 [facility] Comment on above: Performed By: #### L IPID, T7, CMP, TSH #### [facility] [address] [address] [address] Sai Rice Creatinine [Mass/Vol] 0.76 mg/dL Normal 0.55-1.02 [facility] Comment on above: Performed By: #### L IPID, T7, CMP, TSH #### [facility] [address] [address] [address] Sai Rice EGFR-AF TONGAN >60 Normal >=60 [facility] Comment on above: Performed By: #### L IPID, T7, CMP, TSH #### [facility] [address] [place] [address] Dr. Sai Rice EGFR-NON AF TONGAN >60 Normal >=60 [facility] Comment on above: Performed By: #### L IPID, T7, CMP, TSH #### [facility] [address] [place] [address] Dr. Sai Rice Globulin (S) [Mass/Vol] 3.8 g/dL Normal [facility] Comment on above: Performed By: #### L IPID, T7, CMP, TSH #### [facility] [address] [address] [address] Sai Rice Glucose [Mass/Vol] 90 mg/dL Normal 74-106 [facility] Comment on above: Performed By: #### L IPID, T7, CMP, TSH #### [facility] [address] [address] [address] Sai Rice Potassium [Moles/Vol] 4.2 mmol/L Normal 3.5-5.1 [facility] Comment on above: Performed By: #### L IPID, T7, CMP, TSH #### [facility] [address] [address] [address] Sai Rice Protein [Mass/Vol] 7.6 g/dL Normal 6.4-8.2 [facility] Comment on above: Performed By: #### L IPID, T7, CMP, TSH #### [facility] [address] [place] [address] Dr. Sai Rice Sodium [Moles/Vol] 139 mmol/L Normal 136-145 [facility] Comment on above: Performed By: #### L IPID, T7, CMP, TSH #### [facility] [address] [place] [address] Dr. Sai Rice Urea nitrogen [Mass/Vol] 16.0 mg/dL Normal 7.0-18.0 [facility] Comment on above: Performed By: #### L IPID, T7, CMP, TSH #### [facility] [address] [place] [address] Dr. Sai Rice Urea nitrogen/Creatinine [Mass ratio] 21.1 mg/mg Normal [facility] Comment on above: Performed By: #### L IPID, T7, CMP, TSH #### [facility] [address] [place] [address] Dr. Sai Rice TSHon 09-01-2022 TSH 2.761 uIU/mL Normal 0.358-3.740 [facility] Comment on above: Performed By: #### L IPID, T7, CMP, TSH #### [facility] [address] [place] [address] Dr. Sai Rice VITAMIN D 25 OHon 09-01-2022 VIT D 25-OH 12.1 ng/mL Normal [facility] Comment on above: Performed By: #### V LEANN, IRON #### [facility] [address] [place] [address] Dr. Sai Rice VIT D RANGES SEE BELOW Normal [facility] Comment on above: Result Comment: <20 ng/mL Vit D deficient 20 - <30 ng/mL Vit D insufficient 30 - 100 ng/mL Vit D sufficient >100 ng/mL Potential Toxicity Performed By: #### V ITAD, IRON #### [facility] [address] [place] [address] Dr. Sai Rice MG MAMM SCREEN 3D DIANA CADon 01-08-2022 MG MAMM SCREEN 3D DIANA CAD Patient: FELIZ URBINA Exam Date: 01/08/2022 : 1960 Gender:F Ordering : DR ALBA DORANTES . Admission #: [id number] Family : Order #: [id number] CLICK HERE TO VIEW EXAM RADIOLOGY REPORT [...] lung cancer at age 41. LOCATION: [facility] BREAST COMPOSITION: Scattered areas fibroglandular density. FINDINGS: [...] Carlos M.D. on 01/08/2022 at 15:48 Normal [facility] XR DEXA BONE DENSITYon 01-08 [...] by: MAMADOU CARLOS Date: 2022-01-08 14:02 Normal [facility] Encounters Encounter Date Encounter Type Care Provider Facility Start: 04-08-2023 ambulatory Facility:[facility] Start: 09-03-2022 Encounter for genera l adult medical examination without abnormal findings DR ALBA DORANTES [facility] Start: 09-01-2022 End: 09-02-[address] ALBA DORANTES Facility:[facility] Start: 09-01-2022 End: 09-02-2022 Encounter for general adult medical examination without abnormal findings DR ALBA DORANTES Facility:[facility] Start: 06-05-[address] ALBA DORANTES Facility :[facility] Start: 01-08-2022 End: 01-09-[address] ALBA DORANTES Facility:[facility] Payers Date Payer Category Payer Medicare [id number] 2018 Unknown 1960 Medicare [id number] 1960 Self-pay [id number] 1960 Unknown [id number] 1960 Unknown [id number] [id number] [id number] 1960 Unknown [id number] 2.16.84 [id number] 1960 Unknown [id number] 2.16.84 [id number] 1960 Unknown [id number] [id number] Summary Purpose Family History No Family History Records FoundNo Family History Records Found Advance Directives No Advanced Directives Records FoundNo Advanced Directives Records Found Additional Source Comments INFORMATION SOURCE (unrecogn ized section and content) DATE CREATED AUTHOR 10/01/2022 [facility] DATE CREATED AUTHOR AUTHOR'S ORGANIZ ATION 05/25/2023 [facility] FOR RECORDS PERTAINING TO PATIENTS [...] BE BASED ON THE PRIMARY CLINICAL RECORDS. [facility] provides no warranty or guarantee of the accuracy or completeness of information in this document.
[2024-07-06 10:54] LABS: Free T3 1.67 pg/mL (2.18-3.98); Thyroid Stimulating Hormone 1.261 uIU/mL (0.358-3.740)
== END 2024-07-06 09:09 | disposition home or self-care (01) ==
LOC: LAB 09:10
PROVIDERS: PCP Family Medicine; Visit Provider Family Medicine
DX: E03.9 Hypothyroidism, unspecified (principal)
CPT/HCPCS: 36415; 84436; 84443; 84481

== ENCOUNTER 2024-08-05 09:22 | Outpatient (OUT) | payer BC, MEDICARE, SELFPAY ==
--- OUTSIDE RECORDS SUMMARY | 2024-08-05 09:29 | XMS_ITS | CCD ---
Author Organization [facility] Care Team Providers Care Regular Senior Care Provider Name Role Phone JAYNA, DR WILLIS Attending [...] [facility] May 25, 2023 FELIZ URBINA [address] [place] [address] : 1960 Dear Feliz, This is a SECOND ATTEMPT to remind you that you are due for an appointment with [facility]. Please contact our office at [phone] to schedule an appointment at your earliest convenience. Thank you, [facility] Reminderson 05-25-2023 Reminders - From: Kristine Peralta To: [facility] - Reminders/Recalls; Sent: 04/08/2023 15:25:27 EDT Show up: 04/08/2023 15:26:00 EDT Subject: Ambulatory Reminder Reminder/Recall 10 year colon recall melanie mueller 04/03 first recall letter second recall letter Normal [facility] Patient Letter FTMCon 2022 Patient Letter FT April 13, 2023 [facility] [address] [facility] [address] : 1960 Dear Feliz, This is a reminder that you are due for an appointment with [facility]. Please contact our office at [phone] to schedule an appointment at your earliest convenience. Thank you, [facility] CBC AUTO DIFFon 09-01-2022 BASO # 0.1 103/ul Normal 0.0-0.1 [facility] Comment on above: Performed By: #### C BC #### [facility] Laboratory [address] [place] [address] Dr. Sai Rice Basophils/100 WBC (Bld) 1.2 % Normal 0.2-2.0 [facility] Comment on above: Performed By: #### C BC #### [facility] [address] [place] [address] Dr. Sai Rice EO # 0.3 103/ul Normal 0.0-0.7 [facility] Comment on above: Performed By: #### C BC #### [facility] [address] [place] [address] Dr. Sai Rice Eosinophils/100 WBC (Bld) 3.4 % Normal 0.9-7.0 [facility] Comment on above: Performed By: #### C BC #### [facility] [address] [place] [address] Dr. Sai Rice Erythrocyte distribution width (RBC) [Ratio] 12.9 % Normal 11.0-15.0 [facility] Comment on above: Performed By: #### C BC #### [facility] [address] [place] [address] Dr. Sai Rice Hematocrit (Bld) [Volume fraction] 40.9 % Normal 36.0-48.0 [facility] Comment on above: Performed By: #### C BC #### [facility] [address] [place] [address] Dr. Sai Rice Hemoglobin (Bld) [Mass/Vol] 14.4 g/dL Normal 12.0-16.0 [facility] Comment on above: Performed By: #### C BC #### [facility] [address] [place] [address] Dr. Sai Rice IG # 0.02 10e3/ul Normal 0.00-0.03 [facility] Comment on above: Performed By: #### C BC #### [facility] [address] [place] [address] Dr. Sai Rice IG % 0.3 % Normal 0.0-0.5 [facility] Comment on above: Performed By: #### C BC #### [facility] [address] [place] [address] Dr. Sai Rice LYMPH # 2.3 103/ul Normal 1.2-3.8 [facility] Comment on above: Performed By: #### C BC #### [facility] [address] [place] [address] Dr. Sai Rice Lymphocytes/100 WBC (Bld) 31.1 % Normal 20.5-60.0 [facility] Comment on above: Performed By: #### C BC #### [facility] [address] [place] [address] Dr. Sai Rice MANUAL DIFF REQ NO Normal The [facility] Comment on above: Performed By: #### C BC #### [facility] [address] [address] [address] Sai Rice MCH (RBC) [Entitic mass] 32.0 pg Normal 26.7-34.0 [facility] Comment on above: Performed By: #### C BC #### [facility] [address] [place] [address] Dr. Sai Rice MCHC (RBC) [Mass/Vol] 35.2 g/dL Normal 29.9-35.2 [facility] Comment on above: Performed By: #### C BC #### [facility] [address] [place] [address] Dr. Sai Rice MCV (RBC) [Entitic vol] 90.9 fL Normal 81.0-99.0 [facility] Comment on above: Performed By: #### C BC #### [facility] [address] [place] [address] Dr. Sai Rice MONO # 0.6 103/ul Normal 0.3-0.8 [facility] Comment on above: Performed By: #### C BC #### [facility] [address] [place] [address] Dr. Sai Rice Monocytes/100 WBC (Bld) 8.3 % Normal 1.7-12.0 [facility] Comment on above: Performed By: #### C BC #### [facility] [address] [place] [address] Dr. Sai Rice NEUT # 4.1 103/ul Normal 1.4-6.5 [facility] Comment on above: Performed By: #### C BC #### [facility] [address] [place] [address] Dr. Sai Rice Neutrophils/100 WBC (Bld) 55.7 % Normal 43.0-75.0 [facility] Comment on above: Performed By: #### C BC #### [facility] [address] [place] [address] Dr. Sai Rice Platelet mean volume (Bld) [Entitic vol] 10.0 fL Normal 9.5-13.5 [facility] Comment on above: Performed By: #### C BC #### [facility] [address] [place] [address] Dr. Sai Rice PLT 268 103/ul Normal 150-450 [facility] Comment on above: Performed By: #### C BC #### [facility] [address] [place] [address] Dr. Sai Rice RBC 4.50 106/ul Normal 4.20-5.40 [facility] Comment on above: Performed By: #### C BC #### [facility] [address] [place] [address] Dr. Sai Rice WBC 7.3 103/ul Normal 4.0-11.0 [facility] Comment on above: Performed By: #### C BC #### [facility] [address] [place] [address] Dr. Sai Rice FREE THYROXINE INDEX T7on FTI 2.07 Normal 1.30-4.50 [facility] Comment on above: Performed By: #### L IPID, T7, CMP, TSH #### [facility] [address] [place] [address] Dr. Sai Rice T3U 35.0 % Normal 30.0-39.0 [facility] Comment on above: Performed By: #### L IPID, T7, CMP, TSH #### [facility] [address] [place] [address] Dr. Sai Rice T4 [Mass/Vol] 5.90 ug/dL Normal 4.80-13.90 [facility] Comment on above: Performed By: #### L IPID, T7, CMP, TSH #### [facility] [address] [place] [address] Dr. Sai Rice GLYCOHEMOGLOBIN A1Con 2021 ADA RECOMMENDATION SEE BELOW Normal [facility] Comment on above: Result Comment: ADA RECOMMENDED LIMIT 4.0 - 6.0 ADA THERAPEUTIC TARGET < 7.0 ACTION SUGGESTED > 7.0 Performed By: #### A 1C #### [facility] [address] [address] [address] Sai Rice Glucose [Mass/Vol] 111 mg/dL Normal [facility] Comment on above: Performed By: #### A 1C #### [facility] [address] [address] [address] Sai Rice HbA1c (Bld) [Mass fraction] 5.5 % Normal 4.5-6.2 [facility] Comment on above: Performed By: #### A 1C #### [facility] [address] [address] [address] Sai iRce IRONon 09-01-2022 Iron [Mass/Vol] 59.0 ug/dL Normal 50.0-170.0 [facility] Comment on above: Performed By: #### V ITAD, IRON #### [facility] [address] [place] [address] Dr. Sai Rice LIPID PROFILEon 09-01-2022 CHOL-HDL RATIO NORM SEE BELOW Normal [facility] Comment on above: Result Comment: 3.3 - 4.4 LOW RISK 4.4 - 7.1 AVERAGE RISK 7.1 - 11.0 MODERATE RISK >11.0 HIGH RISK Performed By: #### L IPID, T7, CMP, TSH #### [facility] [address] [place] [address] Dr. Sai Rice Cholesterol [Mass/Vol] 169 mg/dL Normal <=200 [facility] Comment on above: Performed By: #### L IPID, T7, CMP, TSH #### [facility] [address] [address] [address] Sai Rice Cholesterol in HDL [Mass/Vol] 49 mg/dL Normal 40-60 [facility] Comment on above: Performed By: #### L IPID, T7, CMP, TSH #### [facility] [address] [address] [address] Sai Rice Cholesterol in LDL [Mass/Vol] 92.4 mg/dL Normal [facility] Comment on above: Performed By: #### L IPID, T7, CMP, TSH #### [facility] [address] [place] [address] Dr. Sai Rice Cholesterol.total/Cho lesterol in HDL [Mass ratio] 3.4 {ratio} Normal [facility] Comment on above: Performed By: #### L IPID, T7, CMP, TSH #### [facility] [address] [address] [address] Sai Rice HDL NORMAL > or = 60 mg/dl - LOW CARDIOVASCULAR RISK <40 mg/dl - HIGH CARDIOVASCULAR RISK Normal [facility] Comment on above: Performed By: #### L IPID, T7, CMP, TSH #### [facility] [address] [address] [address] Sai Rice LDL CALC NORMAL SEE BELOW Normal [facility] Comment on above: Result Comment: <100 mg/dl OPTIMAL 100 - 129 mg/dl NEAR OR ABOVE OPTIMAL 130 - 159 mg/dl BORDERLINE HIGH 160 - 189 mg/dl HIGH >190 mg/dl VERY HIGH Performed By: #### L IPID, T7, CMP, TSH #### [facility] [address] [address] [address] Sai Rice Triglyceride [Mass/Vol] 138 mg/dL Normal <=150 [facility] Comment on above: Performed By: #### L IPID, T7, CMP, TSH #### [facility] [address] [address] [address] Sai Rice VLDL CALC 27.6 mg/dL Normal [facility] Comment on above: Performed By: #### L IPID, T7, CMP, TSH #### [facility] [address] [address] [address] Sai Rice PROF 14(COMP METB)on 022 Albumin [Mass/Vol] 3.8 g/dL Normal 3.4-5.0 [facility] Comment on above: Performed By: #### L IPID, T7, CMP, TSH #### [facility] [address] [address] [address] Sai Rice Albumin/Globulin [Mass ratio] 1.0 {ratio} Normal [facility] Comment on above: Performed By: #### L IPID, T7, CMP, TSH #### [facility] [address] [address] [address] Sai Rice ALP [Catalytic activity/Vol] 78 U/L Normal 46-116 [facility] Comment on above: Performed By: #### L IPID, T7, CMP, TSH #### [facility] [address] [address] [address] Sai Rice ALT [Catalytic activity/Vol] 21 U/L Normal 14-59 [facility] Comment on above: Performed By: #### L IPID, T7, CMP, TSH #### [facility] [address] [address] [address] Sai Rice Anion gap [Moles/Vol] 9.0 mmol/L Normal [facility] Comment on above: Performed By: #### L IPID, T7, CMP, TSH #### [facility] [address] [place] [address] Dr. Sai Rice AST [Catalytic activity/Vol] 15 U/L Normal 15-37 [facility] Comment on above: Performed By: #### L IPID, T7, CMP, TSH #### [facility] [address] [address] [address] Sai Rice Bilirubin [Mass/Vol] 0.4 mg/dL Normal 0.2-1.0 [facility] Comment on above: Performed By: #### L IPID, T7, CMP, TSH #### [facility] [address] [address] [address] Sai Rice Calcium [Mass/Vol] 9.2 mg/dL Normal 8.5-10.1 [facility] Comment on above: Performed By: #### L IPID, T7, CMP, TSH #### [facility] [address] [address] [address] Sai Rice Chloride [Moles/Vol] 106 mmol/L Normal 98-107 [facility] Comment on above: Performed By: #### L IPID, T7, CMP, TSH #### [facility] [address] [address] [address] Sai Rice CO2 [Moles/Vol] 28.2 mmol/L Normal 21.0-32.0 [facility] Comment on above: Performed By: #### L IPID, T7, CMP, TSH #### [facility] [address] [address] [address] Sai Rice Creatinine [Mass/Vol] 0.76 mg/dL Normal 0.55-1.02 [facility] Comment on above: Performed By: #### L IPID, T7, CMP, TSH #### [facility] [address] [address] [address] Sai Rice EGFR-AF TURKMEN >60 Normal >=60 [facility] Comment on above: Performed By: #### L IPID, T7, CMP, TSH #### [facility] [address] [place] [address] Dr. Sai Rice EGFR-NON AF TURKMEN >60 Normal >=60 [facility] Comment on above: Performed By: #### L IPID, T7, CMP, TSH #### [facility] [address] [place] [address] Dr. Sai Rice Globulin (S) [Mass/Vol] 3.8 g/dL Normal [facility] Comment on above: Performed By: #### L IPID, T7, CMP, TSH #### [facility] [address] [address] [address] Sai Rice Glucose [Mass/Vol] 90 mg/dL Normal 74-106 [facility] Comment on above: Performed By: #### L IPID, T7, CMP, TSH #### [facility] [address] [address] [address] Sai Rice Potassium [Moles/Vol] 4.2 mmol/L Normal 3.5-5.1 [facility] Comment on above: Performed By: #### L IPID, T7, CMP, TSH #### [facility] [address] [address] [address] Sai Rice Protein [Mass/Vol] 7.6 g/dL Normal 6.4-8.2 [facility] Comment on above: Performed By: #### L IPID, T7, CMP, TSH #### [facility] [address] [place] [address] Dr. Sai Rice Sodium [Moles/Vol] 139 mmol/L Normal 136-145 [facility] Comment on above: Performed By: #### L IPID, T7, CMP, TSH #### [facility] [address] [place] [address] Dr. Sai Rice Urea nitrogen [Mass/Vol] 16.0 mg/dL Normal 7.0-18.0 [facility] Comment on above: Performed By: #### L IPID, T7, CMP, TSH #### [facility] [address] [place] [address] Dr. Sai Rice Urea nitrogen/Creatinine [Mass ratio] 21.1 mg/mg Normal [facility] Comment on above: Performed By: #### L IPID, T7, CMP, TSH #### [facility] [address] [place] [address] Dr. Sai Rice TSHon 09-01-2022 TSH 2.761 uIU/mL Normal 0.358-3.740 [facility] Comment on above: Performed By: #### L IPID, T7, CMP, TSH #### [facility] [address] [place] [address] Dr. Sai Rice VITAMIN D 25 OHon 09-01-2022 VIT D 25-OH 12.1 ng/mL Normal [facility] Comment on above: Performed By: #### V LEANN, IRON #### [facility] [address] [place] [address] Dr. Sai Rice VIT D RANGES SEE BELOW Normal [facility] Comment on above: Result Comment: <20 ng/mL Vit D deficient 20 - <30 ng/mL Vit D insufficient 30 - 100 ng/mL Vit D sufficient >100 ng/mL Potential Toxicity Performed By: #### V ITAD, IRON #### [facility] [address] [place] [address] Dr. Sai Rice MG MAMM SCREEN 3D DIANA CADon 01-08-2022 MG MAMM SCREEN 3D DIANA CAD Patient: FELIZ URBINA Exam Date: 01/08/2022 : 1960 Gender:F Ordering : DR ALBA DORANTES . Admission #: [id number] Family : Order #: [id number] CLICK HERE TO VIEW EXAM RADIOLOGY REPORT [...] lung cancer at age 41. LOCATION: [facility] BREAST COMPOSITION: Scattered areas fibroglandular density. FINDINGS: [...] Carlos M.D. on 01/08/2022 at 15:48 Normal [facility] XR DEXA BONE DENSITYon 01-08 XR DEXA [...] by: MAMADOU CARLOS Date: 2022-01-08 14:02 Normal [facility] Encounters Encounter Date Encounter Type Care Provider Facility Start: 04-08-2023 ambulatory Facility:[facility] Start: 09-03-2022 Encounter for genera l adult medical examination without abnormal findings DR ALBA DORANTES [facility] Start: 09-01-2022 End: 09-02-[address] ALBA DORANTES Facility:[facility] Start: 09-01-2022 End: 09-02-2022 Encounter for general adult medical examination without abnormal findings DR ALBA DORANTES Facility:[facility] Start: 06-05-[address] ALBA DORANTES Facility :[facility] Start: 01-08-2022 End: 01-09-[address] ALBA DORANTES Facility:[facility] Payers Date Payer Category Payer Medicare [id number] 2018 Unknown 1960 Medicare [id number] 1960 Self-pay [id number] 1960 Unknown [id number] 1960 Unknown [id number] 2.16.84 [id number] 1960 Unknown [id number] 2.16.84 [id number] 1960 Unknown [id number] 2.16.84 [id number] 1960 Unknown [id number] 2.16.8 [id number] Summary Purpose Family History No Family History Records FoundNo Family History Records Found Advance Directives No Advanced Directives Records FoundNo Advanced Directives Records Found Additional Source Comments INFORMATION SOURCE (unrecogn ized section and content) DATE CREATED AUTHOR 10/01/[address] [facility] DATE CREATED AUTHOR AUTHOR'S ORGANIZ ATION 05/25/2023 [facility] FOR RECORDS PERTAINING TO PATIENTS WHO [...] BE BASED ON THE PRIMARY CLINICAL RECORDS. [facility] provides no warranty or guarantee of the accuracy or completeness of information in this document.
[2024-08-05 10:25] LABS: Thyroid Stimulating Hormone 1.957 uIU/mL (0.358-3.740)
== END 2024-08-05 09:23 | disposition home or self-care (01) ==
LOC: LAB 09:23
PROVIDERS: PCP Family Medicine; Visit Provider Family Medicine
DX: E03.9 Hypothyroidism, unspecified (principal)
CPT/HCPCS: 36415; 84436; 84443; 84481

== ENCOUNTER 2024-11-04 07:46 | Outpatient (OUT) | payer BC, MEDICARE, SELFPAY ==
--- OUTSIDE RECORDS SUMMARY | 2024-11-04 07:50 | XMS_ITS | CCD ---
Author Organization [facility] Care Team Providers Care Insurance Processor Name Role Phone JAYNA, DR WILLIS Attending [...] [facility] May 25, 2023 FELIZ URBINA [address] [place] [address] : 1960 Dear Feliz, This is a SECOND ATTEMPT to remind you that you are due for an appointment with [facility]. Please contact our office at [phone] to schedule an appointment at your earliest convenience. Thank you, [facility] Reminderson 05-25-2023 Reminders - From: Kristine Peralta To: [facility] - Reminders/Recalls; Sent: 04/08/2023 15:25:27 EDT Show up: 04/08/2023 15:26:00 EDT Subject: Ambulatory Reminder Reminder/Recall 10 year colon recall melanie mueller 04/03 first recall letter second recall letter Normal [facility] Patient Letter FTMCon 2022 Patient Letter FT April 13, 2023 [facility] [address] [facility] [place] [address] : 1960 Dear Feliz, This is a reminder that you are due for an appointment with [facility]. Please contact our office at [phone] to schedule an appointment at your earliest convenience. Thank you, [facility] CBC AUTO DIFFon 09-01-2022 BASO # 0.1 103/ul Normal 0.0-0.1 [facility] Comment on above: Performed By: #### C BC #### [facility] [address] [place] [address] Dr. Sai Rice Basophils/100 WBC (Bld) 1.2 % Normal 0.2-2.0 [facility] Comment on above: Performed By: #### C BC #### [facility] [address] [place] [address] Dr. Sai Rice EO # 0.3 103/ul Normal 0.0-0.7 [facility] Comment on above: Performed By: #### C BC #### [facility] [address] [place] [address] Dr. Sai Rice Eosinophils/100 WBC (Bld) 3.4 % Normal 0.9-7.0 [facility] Comment on above: Performed By: #### C BC #### [facility] [address] [place] [address] Dr. Sai Rice Erythrocyte distribution width (RBC) [Ratio] 12.9 % Normal 11.0-15.0 [facility] Comment on above: Performed By: #### C BC #### [facility] [address] [place] [address] Dr. Sai Rice Hematocrit (Bld) [Volume fraction] 40.9 % Normal 36.0-48.0 [facility] Comment on above: Performed By: #### C BC #### [facility] [address] [place] [address] Dr. Sai Rice Hemoglobin (Bld) [Mass/Vol] 14.4 g/dL Normal 12.0-16.0 [facility] Comment on above: Performed By: #### C BC #### [facility] [address] [place] [address] Dr. Sai Rice IG # 0.02 10e3/ul Normal 0.00-0.03 [facility] Comment on above: Performed By: #### C BC #### [facility] [address] [place] [address] Dr. Sai Rice IG % 0.3 % Normal 0.0-0.5 [facility] Comment on above: Performed By: #### C BC #### [facility] [address] [place] [address] Dr. Sai Rice LYMPH # 2.3 103/ul Normal 1.2-3.8 [facility] Comment on above: Performed By: #### C BC #### [facility] [address] [place] [address] Dr. Sai Rice Lymphocytes/100 WBC (Bld) 31.1 % Normal 20.5-60.0 [facility] Comment on above: Performed By: #### C BC #### [facility] [address] [place] [address] Dr. Sai Rice MANUAL DIFF REQ NO Normal [facility] Comment on above: Performed By: #### C BC #### [facility] [address] [address] [address] Sai Rice MCH (RBC) [Entitic mass] 32.0 pg Normal 26.7-34.0 [facility] Comment on above: Performed By: #### C BC #### [facility] [address] [place] [address] Dr. Sai Rice MCHC (RBC) [Mass/Vol] 35.2 g/dL Normal 29.9-35.2 [facility] Comment on above: Performed By: #### C BC #### [facility] [address] [place] [address] Dr. Sai Rice MCV (RBC) [Entitic vol] 90.9 fL Normal 81.0-99.0 [facility] Comment on above: Performed By: #### C BC #### [facility] [address] [place] [address] Dr. Sai Rice MONO # 0.6 103/ul Normal 0.3-0.8 [facility] Comment on above: Performed By: #### C BC #### [facility] [address] [place] [address] Dr. Sai Rice Monocytes/100 WBC (Bld) 8.3 % Normal 1.7-12.0 [facility] Comment on above: Performed By: #### C BC #### [facility] [address] [place] [address] Dr. Sai Rice NEUT # 4.1 103/ul Normal 1.4-6.5 [facility] Comment on above: Performed By: #### C BC #### [facility] [address] [place] [address] Dr. Sai Rice Neutrophils/100 WBC (Bld) 55.7 % Normal 43.0-75.0 [facility] Comment on above: Performed By: #### C BC #### [facility] [address] [place] [address] Dr. Sai Rice Platelet mean volume (Bld) [Entitic vol] 10.0 fL Normal 9.5-13.5 [facility] Comment on above: Performed By: #### C BC #### [facility] [address] [place] [address] Dr. Sai Rice PLT 268 103/ul Normal 150-450 [facility] Comment on above: Performed By: #### C BC #### [facility] [address] [place] [address] Dr. Sai Rice RBC 4.50 106/ul Normal 4.20-5.40 [facility] Comment on above: Performed By: #### C BC #### [facility] [address] [place] [address] Dr. Sai Rice WBC 7.3 103/ul Normal 4.0-11.0 [facility] Comment on above: Performed By: #### C BC #### [facility] [address] [place] [address] Dr. Sai Rice FREE THYROXINE INDEX T7on FTI 2.07 Normal 1.30-4.50 [facility] Comment on above: Performed By: #### L IPID, T7, CMP, TSH #### [facility] [address] [place] [address] Dr. Sai Rice T3U 35.0 % Normal 30.0-39.0 [facility] Comment on above: Performed By: #### L IPID, T7, CMP, TSH #### [facility] [address] [place] [address] Dr. Sai Rice T4 [Mass/Vol] 5.90 ug/dL Normal 4.80-13.90 [facility] Comment on above: Performed By: #### L IPID, T7, CMP, TSH #### [facility] [address] [place] [address] Dr. Sai Rice GLYCOHEMOGLOBIN A1Con 2021 ADA RECOMMENDATION SEE BELOW Normal [facility] Comment on above: Result Comment: ADA RECOMMENDED LIMIT 4.0 - 6.0 ADA THERAPEUTIC TARGET < 7.0 ACTION SUGGESTED > 7.0 Performed By: #### A 1C #### [facility] [address] [address] [address] Sai Rice Glucose [Mass/Vol] 111 mg/dL Normal [facility] Comment on above: Performed By: #### A 1C #### [facility] [address] [address] [address] Sai Rice HbA1c (Bld) [Mass fraction] 5.5 % Normal 4.5-6.2 [facility] Comment on above: Performed By: #### A 1C #### [facility] [address] [address] [address] Sai Rice IRONon 09-01-2022 Iron [Mass/Vol] 59.0 ug/dL Normal 50.0-170.0 [facility] Comment on above: Performed By: #### V ITAD, IRON #### [facility] [address] [place] [address] Dr. Sai Rice LIPID PROFILEon 09-01-2022 CHOL-HDL RATIO NORM SEE BELOW Normal [facility] Comment on above: Result Comment: 3.3 - 4.4 LOW RISK 4.4 - 7.1 AVERAGE RISK 7.1 - 11.0 MODERATE RISK >11.0 HIGH RISK Performed By: #### L IPID, T7, CMP, TSH #### [facility] [address] [place] [address] Dr. Sai Rice Cholesterol [Mass/Vol] 169 mg/dL Normal <=200 [facility] Comment on above: Performed By: #### L IPID, T7, CMP, TSH #### [facility] [address] [address] [address] Sai Rice Cholesterol in HDL [Mass/Vol] 49 mg/dL Normal 40-60 [facility] Comment on above: Performed By: #### L IPID, T7, CMP, TSH #### [facility] [address] [address] [address] Sai Rice Cholesterol in LDL [Mass/Vol] 92.4 mg/dL Normal [facility] Comment on above: Performed By: #### L IPID, T7, CMP, TSH #### [facility] [address] [place] [address] Dr. Sai Rice Cholesterol.total/Cho lesterol in HDL [Mass ratio] 3.4 {ratio} Normal [facility] Comment on above: Performed By: #### L IPID, T7, CMP, TSH #### [facility] [address] [address] [address] Sai Rice HDL NORMAL > or = 60 mg/dl - LOW CARDIOVASCULAR RISK <40 mg/dl - HIGH CARDIOVASCULAR RISK Normal [facility] Comment on above: Performed By: #### L IPID, T7, CMP, TSH #### [facility] [address] [address] [address] Sai Rice LDL CALC NORMAL SEE BELOW Normal [facility] Comment on above: Result Comment: <100 mg/dl OPTIMAL 100 - 129 mg/dl NEAR OR ABOVE OPTIMAL 130 - 159 mg/dl BORDERLINE HIGH 160 - 189 mg/dl HIGH >190 mg/dl VERY HIGH Performed By: #### L IPID, T7, CMP, TSH #### [facility] [address] [address] [address] Sai Rice Triglyceride [Mass/Vol] 138 mg/dL Normal <=150 [facility] Comment on above: Performed By: #### L IPID, T7, CMP, TSH #### [facility] [address] [address] [address] Sai Rice VLDL CALC 27.6 mg/dL Normal [facility] Comment on above: Performed By: #### L IPID, T7, CMP, TSH #### [facility] [address] [address] [address] Sai Rice PROF 14(COMP METB)on 022 Albumin [Mass/Vol] 3.8 g/dL Normal 3.4-5.0 [facility] Comment on above: Performed By: #### L IPID, T7, CMP, TSH #### [facility] [address] [address] [address] Sai Rice Albumin/Globulin [Mass ratio] 1.0 {ratio} Normal [facility] Comment on above: Performed By: #### L IPID, T7, CMP, TSH #### [facility] [address] [address] [address] Sai Rice ALP [Catalytic activity/Vol] 78 U/L Normal 46-116 [facility] Comment on above: Performed By: #### L IPID, T7, CMP, TSH #### [facility] [address] [address] [address] Sai Rice ALT [Catalytic activity/Vol] 21 U/L Normal 14-59 [facility] Comment on above: Performed By: #### L IPID, T7, CMP, TSH #### [facility] [address] [address] [address] Sai Rice Anion gap [Moles/Vol] 9.0 mmol/L Normal [facility] Comment on above: Performed By: #### L IPID, T7, CMP, TSH #### [facility] [address] [place] [address] Dr. Sai Rice AST [Catalytic activity/Vol] 15 U/L Normal 15-37 [facility] Comment on above: Performed By: #### L IPID, T7, CMP, TSH #### [facility] [address] [address] [address] Sai Rice Bilirubin [Mass/Vol] 0.4 mg/dL Normal 0.2-1.0 [facility] Comment on above: Performed By: #### L IPID, T7, CMP, TSH #### [facility] [address] [address] [address] Sai Rice Calcium [Mass/Vol] 9.2 mg/dL Normal 8.5-10.1 [facility] Comment on above: Performed By: #### L IPID, T7, CMP, TSH #### [facility] [address] [address] [address] Sai Rice Chloride [Moles/Vol] 106 mmol/L Normal 98-107 [facility] Comment on above: Performed By: #### L IPID, T7, CMP, TSH #### [facility] [address] [address] [address] Sai Rice CO2 [Moles/Vol] 28.2 mmol/L Normal 21.0-32.0 [facility] Comment on above: Performed By: #### L IPID, T7, CMP, TSH #### [facility] [address] [address] [address] Sai Rice Creatinine [Mass/Vol] 0.76 mg/dL Normal 0.55-1.02 [facility] Comment on above: Performed By: #### L IPID, T7, CMP, TSH #### [facility] [address] [address] [address] Sai Rice EGFR-AF YEMENI >60 Normal >=60 [facility] Comment on above: Performed By: #### L IPID, T7, CMP, TSH #### [facility] [address] [place] [address] Dr. Sai Rice EGFR-NON AF YEMENI >60 Normal >=60 [facility] Comment on above: Performed By: #### L IPID, T7, CMP, TSH #### [facility] [address] [place] [address] Dr. Sai Rice Globulin (S) [Mass/Vol] 3.8 g/dL Normal [facility] Comment on above: Performed By: #### L IPID, T7, CMP, TSH #### [facility] [address] [address] [address] Sai Rice Glucose [Mass/Vol] 90 mg/dL Normal 74-106 [facility] Comment on above: Performed By: #### L IPID, T7, CMP, TSH #### [facility] [address] [address] [address] Sai Rice Potassium [Moles/Vol] 4.2 mmol/L Normal 3.5-5.1 [facility] Comment on above: Performed By: #### L IPID, T7, CMP, TSH #### [facility] [address] [address] [address] Sai Rice Protein [Mass/Vol] 7.6 g/dL Normal 6.4-8.2 [facility] Comment on above: Performed By: #### L IPID, T7, CMP, TSH #### [facility] [address] [place] [address] Dr. Sai Rice Sodium [Moles/Vol] 139 mmol/L Normal 136-145 [facility] Comment on above: Performed By: #### L IPID, T7, CMP, TSH #### [facility] [address] [place] [address] Dr. Sai Rice Urea nitrogen [Mass/Vol] 16.0 mg/dL Normal 7.0-18.0 [facility] Comment on above: Performed By: #### L IPID, T7, CMP, TSH #### [facility] [address] [place] [address] Dr. Sai Rice Urea nitrogen/Creatinine [Mass ratio] 21.1 mg/mg Normal [facility] Comment on above: Performed By: #### L IPID, T7, CMP, TSH #### [facility] [address] [place] [address] Dr. Sai Rice TSHon 09-01-2022 TSH 2.761 uIU/mL Normal 0.358-3.740 [facility] Comment on above: Performed By: #### L IPID, T7, CMP, TSH #### [facility] [address] [place] [address] Dr. Sai Rice VITAMIN D 25 OHon 09-01-2022 VIT D 25-OH 12.1 ng/mL Normal [facility] Comment on above: Performed By: #### V LEANN, IRON #### [facility] [address] [place] [address] Dr. Sai Rice VIT D RANGES SEE BELOW Normal [facility] Comment on above: Result Comment: <20 ng/mL Vit D deficient 20 - <30 ng/mL Vit D insufficient 30 - 100 ng/mL Vit D sufficient >100 ng/mL Potential Toxicity Performed By: #### V ITAD, IRON #### [facility] [address] [place] [address] Dr. Sai Rice MG MAMM SCREEN 3D DIANA CADon 01-08-2022 MG MAMM SCREEN 3D DIANA CAD Patient: FELIZ URBINA Exam Date: 01/08/2022 : 1960 Gender:F Ordering : DR ALBA DORANTES . Admission #: [id number] Family : Order #: [id number] CLICK HERE TO VIEW EXAM RADIOLOGY REPORT [...] lung cancer at age 41. LOCATION: [facility] BREAST COMPOSITION: Scattered areas fibroglandular density. [...] Carlos M.D. on 01/08/2022 at 15:48 Normal [facility] XR DEXA BONE DENSITYon 01-08 [...] by: MAMADOU CARLOS Date: 2022-01-08 14:02 Normal [facility] Encounters Encounter Date Encounter Type Care Provider Facility Start: 04-08-2023 ambulatory Facility:[facility] Start: 09-03-2022 Encounter for genera l adult medical examination without abnormal findings DR ALBA DORANTES [facility] Start: 09-01-2022 End: 09-02-[address] ALBA DORANTES Facility:[facility] Start: 09-01-2022 End: 09-02-2022 Encounter for general adult medical examination without abnormal findings DR ALBA DORANTES Facility:[facility] Start: 06-05-[address] ALBA DORANTES Facility :[facility] Start: 01-08-2022 End: 01-09-[address] ALBA DORANTES Facility:[facility] Payers Date Payer Category Payer Medicare [id number] 2017 Unknown 1960 Medicare [id number] 1960 Self-pay [id number] 1960 Unknown [id number] 1960 Unknown [id number] [id number] [id number] 1960 Unknown [id number] 2.16.84 [id number] 1960 Unknown [id number] 2.16.84 [id number] 1960 Unknown [id number] [id number] Summary Purpose Family History No Family History Records FoundNo Family History Records Found Advance Directives No Advanced Directives Records FoundNo Advanced Directives Records Found Additional Source Comments INFORMATION SOURCE (unrecogn ized section and content) DATE CREATED AUTHOR 10/01/2022 [facility] DATE CREATED AUTHOR AUTHOR'S ORGANIZ ATION 05/25/2023 [facility] FOR RECORDS PERTAINING TO PATIENTS WHO [...] BE BASED ON THE PRIMARY CLINICAL RECORDS. [facility] provides no warranty or guarantee of the accuracy or completeness of information in this document.
--- NOTE | 2024-11-04 07:51 | CT_ITS ---
[address] [address] Patient Name: FELIZ URBINA MRN: [id number] date: 1960 Sex: F Assigned Patient Location: CT Current Patient Location: CT Accession/Order Number: [id number] Exam Date: 11/04/2024 07:59 Report Date: 11/04/2024 09:23 At the request of: ALBA DORANTES Procedure: CT cervical spine wo con EXAM: CT cervical spine wo con CLINICAL INDICATION: Cervical Radiculopathy COMPARISON: None TECHNIQUE: Axial CT images of the cervical spine were obtained without intravenous contrast. Coronal and sagittal reformatted images were also reviewed. Dose reduction techniques were achieved by using automated exposure control and/or adjustment of mA and/or kV according to patient size and/or use of iterative reconstruction technique. FINDINGS: Osseous Mineralization: Mild osseous demineralization limits evaluation of fine osseous detail. Trauma: No definite fracture, traumatic malalignment, facet dislocation, or discrete epidural hemorrhage. Alignment: Normal craniocervical and cervicothoracic junctions. Straightening of the physiologic cervical lordosis and mild anterior subluxation of C3 on C4 and C5 on C6 at least in part to patient positioning. Vertebral Body Heights: Maintained. Spondylotic Changes: Multilevel spondylotic changes include varying degrees of intervertebral disc height loss, osteophytic ridging, endplate sclerosis, and facet/uncovertebral joint hypertrophy. Small disc osteophyte complexes at C4-C5 and C6-C7. Osseous foraminal narrowing is advanced on the left and mild to moderate on the right C4-C5, contributed to by uncovertebral and facet joint hypertrophy. Soft Tissues: Normal. Other: Clear visualized lung apices. Airway is patent. CT/CT cervical spine wo con IMPRESSION: 1. No acute osseous abnormalities in the cervical spine. 2. Multilevel spondylotic changes. Osseous foraminal narrowing is advanced on the left and mild to moderate on the right C4-C5, contributed to by uncovertebral and facet joint hypertrophy. Electronically authenticated by: MELIDA BLOOM Date: 11/04/2024 09:23
== END 2024-11-04 07:47 | disposition home or self-care (01) ==
LOC: CT 07:47
PROVIDERS: PCP Family Medicine; Visit Provider Family Medicine
DX: M54.12 Radiculopathy, cervical region (principal); M47.812 Spondylosis without myelopathy or radiculopathy, cervical region
CPT/HCPCS: 72125

== ENCOUNTER 2024-11-14 08:50 | Outpatient (RCR) | payer BC, MEDICARE, SELFPAY | END 2024-11-22 14:23 | disposition home or self-care (01) | LOC: PT 08:50 | PROVIDERS: PCP Family Medicine; Visit Provider Family Medicine | DX: M54.12 Radiculopathy, cervical region (principal) | CPT/HCPCS: 97110; 97140; 97161 ==

== ENCOUNTER 2024-11-21 10:06 | Outpatient (OUT) | payer BC, MEDICARE, SELFPAY ==
--- OUTSIDE RECORDS SUMMARY | 2024-11-21 10:12 | XMS_ITS | CCD ---
Author Organization [facility] Care Team Providers Care Fire Official Name Role Phone JAYNA, DR WILLIS Attending [...] [facility] May 25, 2023 FELIZ [address]RBINA [address] [place] [address] : 1960 Dear Feliz, This is a SECOND ATTEMPT to remind you that you are due for an appointment with [facility]. Please contact our office at [phone] to schedule an appointment at your earliest convenience. Thank you, [facility] Reminderson 05-25-2023 Reminders - From: Kristine Peralta To: [facility] - Reminders/Recalls; Sent: 04/08/2023 15:25:27 EDT Show up: 04/08/2023 15:26:00 EDT Subject: Ambulatory Reminder Reminder/Recall 10 year colon recall melanie mueller 04/03 first recall letter second recall letter Normal [facility] Patient Letter FTMCon 2022 Patient Letter FT April 13, 2023 [facility] [address] [facility] [address] : 1960 Dear Feliz, This is a reminder that you are due for an appointment with [facility]. Please contact our office at [phone] to schedule an appointment at your earliest convenience. Thank you, [facility] CBC AUTO DIFFon 09-01-2022 BASO # 0.1 103/ul Normal 0.0-0.[address] [facility] Comment on above: Performed By: #### C BC #### [facility] [address] [place] [address] Dr. Sai Rice Basophils/100 WBC (Bld) 1.2 % Normal 0.2-2.[address] [facility] Comment on above: Performed By: #### C BC #### [facility] [address] [place] [address] Dr. Sai Rice EO # 0.3 103/ul Normal 0.0-0.[address] [facility] Comment on above: Performed By: #### C BC #### [facility] [address] [place] [address] Dr. Sai Rice Eosinophils/100 WBC (Bld) 3.4 % Normal 0.9-7.0 [facility] Comment on above: Performed By: #### C BC #### [facility] [address] [place] [address] Dr. Sai Rice Erythrocyte distribution width (RBC) [Ratio] 12.9 % Normal 11.0-15.0 [facility] Comment on above: Performed By: #### C BC #### [facility] [address] [place] [address] Dr. Sai Rice Hematocrit (Bld) [Volume fraction] 40.9 % Normal 36.0-48.0 [facility] Comment on above: Performed By: #### C BC #### [facility] [address] [place] [address] Dr. Sai Rice Hemoglobin (Bld) [Mass/Vol] 14.4 g/dL Normal 12.0-16.0 [facility] Comment on above: Performed By: #### C BC #### [facility] [address] [place] [address] Dr. Sai Rice IG # 0.02 10e3/ul Normal 0.00-0.03 [facility] Comment on above: Performed By: #### C BC #### [facility] [address] [place] [address] Dr. Sai Rice IG % 0.3 % Normal 0.0-0.[address] [facility] Comment on above: Performed By: #### C BC #### [facility] [address] [place] [address] Dr. Sai Rice LYMPH # 2.3 103/ul Normal 1.2-3.[address] [facility] Comment on above: Performed By: #### C BC #### [facility] [address] [place] [address] Dr. Sai Rice Lymphocytes/100 WBC (Bld) 31.1 % Normal 20.5-60.0 [facility] Comment on above: Performed By: #### C BC #### [facility] [address] [place] [address] Dr. Sai Rice MANUAL DIFF REQ NO Normal [facility] Comment on above: Performed By: #### C BC #### [facility] [address] [address] [address] Sai Rice MCH (RBC) [Entitic mass] 32.0 pg Normal 26.7-34.0 [facility] Comment on above: Performed By: #### C BC #### [facility] [address] [place] [address] Dr. Sai Rice MCHC (RBC) [Mass/Vol] 35.2 g/dL Normal 29.9-35.2 [facility] Comment on above: Performed By: #### C BC #### [facility] [address] [place] [address] Dr. Sai Rice MCV (RBC) [Entitic vol] 90.9 fL Normal 81.0-99.0 [facility] Comment on above: Performed By: #### C BC #### [facility] [address] [place] [address] Dr. Sai Rice MONO # 0.6 103/ul Normal 0.3-0.8 [facility] Comment on above: Performed By: #### C BC #### [facility] [address] [place] [address] Dr. Sai Rice Monocytes/100 WBC (Bld) 8.3 % Normal 1.7-12.0 [facility] Comment on above: Performed By: #### C BC #### [facility] [address] [place] [address] Dr. Sai Rice NEUT # 4.1 103/ul Normal 1.4-6.5 [facility] Comment on above: Performed By: #### C BC #### [facility] [address] [place] [address] Dr. Sai Rice Neutrophils/100 WBC (Bld) 55.7 % Normal 43.0-75.0 [facility] Comment on above: Performed By: #### C BC #### [facility] [address] [place] [address] Dr. Sai Rice Platelet mean volume (Bld) [Entitic vol] 10.0 fL Normal 9.5-13.5 [facility] Comment on above: Performed By: #### C BC #### [facility] [address] [place] [address] Dr. Sai Rice PLT 268 103/ul Normal 150-450 [facility] Comment on above: Performed By: #### C BC #### [facility] [address] [place] [address] Dr. Sai Rice RBC 4.50 106/ul Normal 4.20-5.40 [facility] Comment on above: Performed By: #### C BC #### [facility] [address] [place] [address] Dr. Sai Rice WBC 7.3 103/ul Normal 4.0-11.0 [facility] Comment on above: Performed By: #### C BC #### [facility] [address] [place] [address] Dr. Sai Rice FREE THYROXINE INDEX T7on FTI 2.07 Normal 1.30-4.50 [facility] Comment on above: Performed By: #### L IPID, T7, CMP, TSH #### [facility] [address] [place] [address] Dr. Sai Rice T3U 35.0 % Normal 30.0-39.0 [facility] Comment on above: Performed By: #### L IPID, T7, CMP, TSH #### [facility] [address] [place] [address] Dr. Sai Rice T4 [Mass/Vol] 5.90 ug/dL Normal 4.80-13.90 [facility] Comment on above: Performed By: #### L IPID, T7, CMP, TSH #### [facility] [address] [place] [address] Dr. Sai Rice GLYCOHEMOGLOBIN A1Con 2021 ADA RECOMMENDATION SEE BELOW Normal [facility] Comment on above: Result Comment: ADA RECOMMENDED LIMIT 4.0 - 6.0 ADA THERAPEUTIC TARGET < 7.0 ACTION SUGGESTED > 7.0 Performed By: #### A 1C #### [facility] [address] [address] [address] Sai Rice Glucose [Mass/Vol] 111 mg/dL Normal [facility] Comment on above: Performed By: #### A 1C #### [facility] [address] [address] [address] Sai Rice HbA1c (Bld) [Mass fraction] 5.5 % Normal 4.5-6.2 [facility] Comment on above: Performed By: #### A 1C #### [facility] [address] [address] [address] Sai Rice IRONon 09-01-2022 Iron [Mass/Vol] 59.0 ug/dL Normal 50.0-170.0 [facility] Comment on above: Performed By: #### V ITAD, IRON #### [facility] [address] [place] [address] Dr. Sai Rice LIPID PROFILEon 09-01-2022 CHOL-HDL RATIO NORM SEE BELOW Normal [facility] Comment on above: Result Comment: 3.3 - 4.4 LOW RISK 4.4 - 7.1 AVERAGE RISK 7.1 - 11.0 MODERATE RISK >11.0 HIGH RISK Performed By: #### L IPID, T7, CMP, TSH #### [facility] [address] [place] [address] Dr. Sai Rice Cholesterol [Mass/Vol] 169 mg/dL Normal <=200 [facility] Comment on above: Performed By: #### L IPID, T7, CMP, TSH #### [facility] [address] [address] [address] Sai Rice Cholesterol in HDL [Mass/Vol] 49 mg/dL Normal 40-60 [facility] Comment on above: Performed By: #### L IPID, T7, CMP, TSH #### [facility] [address] [address] [address] Sai Rice Cholesterol in LDL [Mass/Vol] 92.4 mg/dL Normal [facility] Comment on above: Performed By: #### L IPID, T7, CMP, TSH #### [facility] [address] [place] [address] Dr. Sai Rice Cholesterol.total/Cho lesterol in HDL [Mass ratio] 3.4 {ratio} Normal [facility] Comment on above: Performed By: #### L IPID, T7, CMP, TSH #### [facility] [address] [address] [address] Sai Rice HDL NORMAL > or = 60 mg/dl - LOW CARDIOVASCULAR RISK <40 mg/dl - HIGH CARDIOVASCULAR RISK Normal [facility] Comment on above: Performed By: #### L IPID, T7, CMP, TSH #### [facility] [address] [address] [address] Sai Rice LDL CALC NORMAL SEE BELOW Normal [facility] Comment on above: Result Comment: <100 mg/dl OPTIMAL 100 - 129 mg/dl NEAR OR ABOVE OPTIMAL 130 - 159 mg/dl BORDERLINE HIGH 160 - 189 mg/dl HIGH >190 mg/dl VERY HIGH Performed By: #### L IPID, T7, CMP, TSH #### [facility] [address] [address] [address] Sai Rice Triglyceride [Mass/Vol] 138 mg/dL Normal <=150 [facility] Comment on above: Performed By: #### L IPID, T7, CMP, TSH #### [facility] [address] [address] [address] Sai Rice VLDL CALC 27.6 mg/dL Normal [facility] Comment on above: Performed By: #### L IPID, T7, CMP, TSH #### [facility] [address] [address] [address] Sai Rice PROF 14(COMP METB)on 022 Albumin [Mass/Vol] 3.8 g/dL Normal 3.4-5.0 [facility] Comment on above: Performed By: #### L IPID, T7, CMP, TSH #### [facility] [address] [address] [address] Sai Rice Albumin/Globulin [Mass ratio] 1.0 {ratio} Normal [facility] Comment on above: Performed By: #### L IPID, T7, CMP, TSH #### [facility] [address] [address] [address] Sai Rice ALP [Catalytic activity/Vol] 78 U/L Normal 46-116 [facility] Comment on above: Performed By: #### L IPID, T7, CMP, TSH #### [facility] [address] [address] [address] Sai Rice ALT [Catalytic activity/Vol] 21 U/L Normal 14-59 [facility] Comment on above: Performed By: #### L IPID, T7, CMP, TSH #### [facility] [address] [address] [address] Sai Rice Anion gap [Moles/Vol] 9.0 mmol/L Normal [facility] Comment on above: Performed By: #### L IPID, T7, CMP, TSH #### [facility] [address] [place] [address] Dr. Sai Rice AST [Catalytic activity/Vol] 15 U/L Normal 15-37 [facility] Comment on above: Performed By: #### L IPID, T7, CMP, TSH #### [facility] [address] [address] [address] Sai Rice Bilirubin [Mass/Vol] 0.4 mg/dL Normal 0.2-1.0 [facility] Comment on above: Performed By: #### L IPID, T7, CMP, TSH #### [facility] [address] [address] [address] Sai Rice Calcium [Mass/Vol] 9.2 mg/dL Normal 8.5-10.1 [facility] Comment on above: Performed By: #### L IPID, T7, CMP, TSH #### [facility] [address] [address] [address] Sai Rice Chloride [Moles/Vol] 106 mmol/L Normal 98-107 [facility] Comment on above: Performed By: #### L IPID, T7, CMP, TSH #### [facility] [address] [address] [address] Sai Rice CO2 [Moles/Vol] 28.2 mmol/L Normal 21.0-32.0 [facility] Comment on above: Performed By: #### L IPID, T7, CMP, TSH #### [facility] [address] [address] [address] Sai Rice Creatinine [Mass/Vol] 0.76 mg/dL Normal 0.55-1.02 [facility] Comment on above: Performed By: #### L IPID, T7, CMP, TSH #### [facility] [address] [address] [address] Sai Rice EGFR-AF [place]LANDER >60 Normal >=60 [facility] Comment on above: Performed By: #### L IPID, T7, CMP, TSH #### [facility] [address] [place] [address] Dr. Sai Rice EGFR-NON AF [place]ER >60 Normal >=60 [facility] Comment on above: Performed By: #### L IPID, T7, CMP, TSH #### [facility] [address] [place] [address] Dr. Sai Rice Globulin (S) [Mass/Vol] 3.8 g/dL Normal [facility] Comment on above: Performed By: #### L IPID, T7, CMP, TSH #### [facility] [address] [address] [address] Sai Rice Glucose [Mass/Vol] 90 mg/dL Normal 74-106 [facility] Comment on above: Performed By: #### L IPID, T7, CMP, TSH #### [facility] [address] [address] [address] Sai Rice Potassium [Moles/Vol] 4.2 mmol/L Normal 3.5-5.[address] [facility] Comment on above: Performed By: #### L IPID, T7, CMP, TSH #### [facility] [address] [address] [address] Sai Rice Protein [Mass/Vol] 7.6 g/dL Normal 6.4-8.2 [facility] Comment on above: Performed By: #### L IPID, T7, CMP, TSH #### [facility] [address] [place] [address] Dr. Sai Rice Sodium [Moles/Vol] 139 mmol/L Normal 136-145 [facility] Comment on above: Performed By: #### L IPID, T7, CMP, TSH #### [facility] [address] [place] [address] Dr. Sai Rice Urea nitrogen [Mass/Vol] 16.0 mg/dL Normal 7.0-18.0 [facility] Comment on above: Performed By: #### L IPID, T7, CMP, TSH #### [facility] [address] [place] [address] Dr. Sai Rice Urea nitrogen/Creatinine [Mass ratio] 21.1 mg/mg Normal [facility] Comment on above: Performed By: #### L IPID, T7, CMP, TSH #### [facility] [address] [place] [address] Dr. Sai Rice TSHon 09-01-2022 TSH 2.761 uIU/mL Normal 0.358-3.740 [facility] Comment on above: Performed By: #### L IPID, T7, CMP, TSH #### [facility] [address] [place] [address] Dr. Sai Rice VITAMIN D 25 OHon 09-01-2022 VIT D 25-OH 12.1 ng/mL Normal [facility] Comment on above: Performed By: #### V LEANN, IRON #### [facility] [address] [place] [address] Dr. Sai Rice VIT D RANGES SEE BELOW Normal [facility] Comment on above: Result Comment: <20 ng/mL Vit D deficient 20 - <30 ng/mL Vit D insufficient 30 - 100 ng/mL Vit D sufficient >100 ng/mL Potential Toxicity Performed By: #### V ITAD, IRON #### [facility] [address] [place] [address] Dr. Sai Rice MG MAMM SCREEN 3D DIANA CADon 01-08-2022 MG MAMM SCREEN 3D DIANA CAD Patient: FELIZ URBINA Exam Date: 01/08/2022 : 1960 Gender:F Ordering : DR ALBA DORANTES . Admission #: [id number] Family : Order #: [id number] CLICK HERE TO VIEW EXAM RADIOLOGY REPORT [...] lung cancer at age 41. LOCATION: [facility] BREAST COMPOSITION: Scattered areas fibroglandular density. [...] Carlos M.D. on 01/08/2022 at 15:48 Normal [facility] XR DEXA BONE DENSITYon 01-08 XR [...] by: MAMADOU CARLOS Date: 2022-01-08 14:02 Normal [facility] Encounters Encounter Date Encounter Type Care Provider Facility Start: 04-08-2023 ambulatory Facility:[facility] Start: 09-03-2022 Encounter for genera l adult medical examination without abnormal findings DR ALBA DORANTES [facility] Start: 09-01-2022 End: 09-02-[address] ALBA DORANTES Facility:[facility] Start: 09-01-2022 End: 09-02-2022 Encounter for general adult medical examination without abnormal findings DR ALBA DORANTES Facility:[facility] Start: 06-05-[address] ALBA DORANTES Facility :[facility] Start: 01-08-2022 End: 01-09-[address] ALBA DORANTES Facility:[facility] Payers Date Payer Category Payer Medicare [id number] 2018 Unknown 1960 Medicare [id number] 1960 Self-pay [id number] 1960 Unknown [id number] 1960 Unknown [id number] 2.16.84 [id number] 1960 Unknown [id number] 2.16.84 [id number] 1960 Unknown [id number] 2.16.84 [id number] 1960 Unknown [id number] [id number] Summary Purpose Family History No Family History Records FoundNo Family History Records Found Advance Directives No Advanced Directives Records FoundNo Advanced Directives Records Found Additional Source Comments INFORMATION SOURCE (unrecogn ized section and content) DATE CREATED AUTHOR 10/01/2022 [facility] DATE CREATED AUTHOR AUTHOR'S ORGANIZ ATION 05/25/2023 [facility] FOR RECORDS PERTAINING TO PATIENTS WHO [...] BE BASED ON THE PRIMARY CLINICAL RECORDS. [facility]. provides no warranty or guarantee of the accuracy or completeness of information in this document.
[2024-11-21 11:27] LABS: Free T3 2.04 pg/mL (2.18-3.98)
== END 2024-11-21 10:07 | disposition home or self-care (01) ==
LOC: LAB 10:09
PROVIDERS: PCP Family Medicine; Visit Provider Family Medicine
DX: I10 Essential (primary) hypertension (principal)
CPT/HCPCS: 36415; 84436; 84443; 84481

== ENCOUNTER 2025-06-29 08:38 | Outpatient (OUT) | payer BC, MEDICARE, SELFPAY ==
--- OUTSIDE RECORDS SUMMARY | 2025-06-29 08:45 | XMS_ITS | CCD ---
Author Organization [facility] Care Team Providers Care [facility] Insurance Clerk Name Role Phone JAYNA, DR WILLIS Attending [...] [facility] May 25, 2023 FELIZ URBINA [address] [place] [address] : 1960 Dear Feliz, This is a SECOND ATTEMPT to remind you that you are due for an appointment with [facility]. Please contact our office at [phone] to schedule an appointment at your earliest convenience. Thank you, [facility] Reminderson 05-25-2023 Reminders - From: Kristine Peralta To: [facility] - Reminders/Recalls; Sent: 04/08/2023 15:25:27 EDT Show up: 04/08/2023 15:26:00 EDT Subject: Ambulatory Reminder Reminder/Recall 10 year colon recall melanie mueller 04/03 first recall letter second recall letter Normal [facility] Patient Letter FTMCon 2022 Patient Letter FT April 13, 2023 [facility]ELIZ URBINA [address] [facility] [place] [address] : 1960 Dear Feliz, This is a reminder that you are due for an appointment with [facility]. Please contact our office at [phone] to schedule an appointment at your earliest convenience. Thank you, [facility] CBC AUTO DIFFon 09-01-2022 BASO # 0.1 103/ul Normal 0.0-0.1 [facility] Comment on above: Performed By: #### C BC #### [facility] [address] [place] [address] Dr. Sai Rice Basophils/100 WBC (Bld) 1.2 % Normal 0.2-2.0 [facility] Comment on above: Performed By: #### C BC #### [facility] [address] [place] [address] Dr. Sai Rice EO # 0.3 103/ul Normal 0.0-0.7 [facility] Comment on above: Performed By: #### C BC #### [facility] [address] [place] [address] Dr. Sai Rice Eosinophils/100 WBC (Bld) 3.4 % Normal 0.9-7.0 [facility] Comment on above: Performed By: #### C BC #### [facility] [address] [place] [address] Dr. Sai Rice Erythrocyte distribution width (RBC) [Ratio] 12.9 % Normal 11.0-15.0 [facility] Comment on above: Performed By: #### C BC #### [facility] [address] [place] [address] Dr. Sai Rice Hematocrit (Bld) [Volume fraction] 40.9 % Normal 36.0-48.0 [facility] Comment on above: Performed By: #### C BC #### [facility] [address] [place] [address] Dr. Sai Rice Hemoglobin (Bld) [Mass/Vol] 14.4 g/dL Normal 12.0-16.0 [facility] Comment on above: Performed By: #### C BC #### [facility] [address] [place] [address] Dr. Sai Rice IG # 0.02 10e3/ul Normal 0.00-0.03 [facility] Comment on above: Performed By: #### C BC #### [facility] [address] [place] [address] Dr. Sai Rice IG % 0.3 % Normal 0.0-0.5 [facility] Comment on above: Performed By: #### C BC #### [facility] [address] [place] [address] Dr. Sai Rice LYMPH # 2.3 103/ul Normal 1.2-3.8 [facility] Comment on above: Performed By: #### C BC #### [facility] [address] [place] [address] Dr. Sai Rice Lymphocytes/100 WBC (Bld) 31.1 % Normal 20.5-60.0 [facility] Comment on above: Performed By: #### C BC #### [facility] [address] [place] [address] Dr. Sai Rice MANUAL DIFF REQ NO Normal [facility] Comment on above: Performed By: #### C BC #### [facility] [address] [address] [address] Sai Rice MCH (RBC) [Entitic mass] 32.0 pg Normal 26.7-34.0 [facility] Comment on above: Performed By: #### C BC #### [facility] [address] [place] [address] Dr. Sai Rice MCHC (RBC) [Mass/Vol] 35.2 g/dL Normal 29.9-35.2 [facility] Comment on above: Performed By: #### C BC #### [facility] [address] [place] [address] Dr. Sai Rice MCV (RBC) [Entitic vol] 90.9 fL Normal 81.0-99.0 [facility] Comment on above: Performed By: #### C BC #### [facility] [address] [place] [address] Dr. Sai Rice MONO # 0.6 103/ul Normal 0.3-0.8 [facility] Comment on above: Performed By: #### C BC #### [facility] [address] [place] [address] Dr. Sai Rice Monocytes/100 WBC (Bld) 8.3 % Normal 1.7-12.0 [facility] Comment on above: Performed By: #### C BC #### [facility] [address] [place] [address] Dr. Sai Rice NEUT # 4.1 103/ul Normal 1.4-6.5 [facility] Comment on above: Performed By: #### C BC #### [facility] [address] [place] [address] Dr. Sai Rice Neutrophils/100 WBC (Bld) 55.7 % Normal 43.0-75.0 [facility] Comment on above: Performed By: #### C BC #### [facility] [address] [place] [address] Dr. Sai Rice Platelet mean volume (Bld) [Entitic vol] 10.0 fL Normal 9.5-13.5 [facility] Comment on above: Performed By: #### C BC #### [facility] [address] [place] [address] Dr. Sai Rice PLT 268 103/ul Normal 150-450 [facility] Comment on above: Performed By: #### C BC #### [facility] [address] [place] [address] Dr. Sai Rice RBC 4.50 106/ul Normal 4.20-5.40 [facility] Comment on above: Performed By: #### C BC #### [facility] [address] [place] [address] Dr. Sai Rice WBC 7.3 103/ul Normal 4.0-11.0 [facility] Comment on above: Performed By: #### C BC #### [facility] [address] [place] [address] Dr. Sai Rice FREE THYROXINE INDEX T7on FTI 2.07 Normal 1.30-4.50 [facility] Comment on above: Performed By: #### L IPID, T7, CMP, TSH #### [facility] [address] [place] [address] Dr. Sai Rice T3U 35.0 % Normal 30.0-39.0 [facility] Comment on above: Performed By: #### L IPID, T7, CMP, TSH #### [facility] [address] [place] [address] Dr. Sai Rice T4 [Mass/Vol] 5.90 ug/dL Normal 4.80-13.90 [facility] Comment on above: Performed By: #### L IPID, T7, CMP, TSH #### [facility] [address] [place] [address] Dr. Sai Rice GLYCOHEMOGLOBIN A1Con 2021 ADA RECOMMENDATION SEE BELOW Normal [facility] Comment on above: Result Comment: ADA RECOMMENDED LIMIT 4.0 - 6.0 ADA THERAPEUTIC TARGET < 7.0 ACTION SUGGESTED > 7.0 Performed By: #### A 1C #### [facility] [address] [address] [address] Sai Rice Glucose [Mass/Vol] 111 mg/dL Normal [facility] Comment on above: Performed By: #### A 1C #### [facility] [address] [address] [address] Sai Rice HbA1c (Bld) [Mass fraction] 5.5 % Normal 4.5-6.2 [facility] Comment on above: Performed By: #### A 1C #### [facility] [address] [address] [address] Sai Rice IRONon 09-01-2022 Iron [Mass/Vol] 59.0 ug/dL Normal 50.0-170.0 [facility] Comment on above: Performed By: #### V ITAD, IRON #### [facility] [address] [place] [address] Dr. Sai Rice LIPID PROFILEon 09-01-2022 CHOL-HDL RATIO NORM SEE BELOW Normal [facility] Comment on above: Result Comment: 3.3 - 4.4 LOW RISK 4.4 - 7.1 AVERAGE RISK 7.1 - 11.0 MODERATE RISK >11.0 HIGH RISK Performed By: #### L IPID, T7, CMP, TSH #### [facility] [address] [place] [address] Dr. Sai Rice Cholesterol [Mass/Vol] 169 mg/dL Normal <=200 [facility] Comment on above: Performed By: #### L IPID, T7, CMP, TSH #### [facility] [address] [address] [address] Sai Rice Cholesterol in HDL [Mass/Vol] 49 mg/dL Normal 40-60 [facility] Comment on above: Performed By: #### L IPID, T7, CMP, TSH #### [facility] [address] [address] [address] Sai Rice Cholesterol in LDL [Mass/Vol] 92.4 mg/dL Normal [facility] Comment on above: Performed By: #### L IPID, T7, CMP, TSH #### [facility] [address] [place] [address] Dr. Sai Rice Cholesterol.total/Cho lesterol in HDL [Mass ratio] 3.4 {ratio} Normal [facility] Comment on above: Performed By: #### L IPID, T7, CMP, TSH #### [facility] [address] [address] [address] Sai Rice HDL NORMAL > or = 60 mg/dl - LOW CARDIOVASCULAR RISK <40 mg/dl - HIGH CARDIOVASCULAR RISK Normal [facility] Comment on above: Performed By: #### L IPID, T7, CMP, TSH #### [facility] [address] [address] [address] Sai Rice LDL CALC NORMAL SEE BELOW Normal [facility] Comment on above: Result Comment: <100 mg/dl OPTIMAL 100 - 129 mg/dl NEAR OR ABOVE OPTIMAL 130 - 159 mg/dl BORDERLINE HIGH 160 - 189 mg/dl HIGH >190 mg/dl VERY HIGH Performed By: #### L IPID, T7, CMP, TSH #### [facility] [address] [address] [address] Sai Rice Triglyceride [Mass/Vol] 138 mg/dL Normal <=150 [facility] Comment on above: Performed By: #### L IPID, T7, CMP, TSH #### [facility] [address] [address] [address] Sai Rice VLDL CALC 27.6 mg/dL Normal [facility] Comment on above: Performed By: #### L IPID, T7, CMP, TSH #### [facility] [address] [address] [address] Sai Rice PROF 14(COMP METB)on 022 Albumin [Mass/Vol] 3.8 g/dL Normal 3.4-5.0 [facility] Comment on above: Performed By: #### L IPID, T7, CMP, TSH #### [facility] [address] [address] [address] Sai Rice Albumin/Globulin [Mass ratio] 1.0 {ratio} Normal [facility] Comment on above: Performed By: #### L IPID, T7, CMP, TSH #### [facility] [address] [address] [address] Sai Rice ALP [Catalytic activity/Vol] 78 U/L Normal 46-116 [facility] Comment on above: Performed By: #### L IPID, T7, CMP, TSH #### [facility] [address] [address] [address] Sai Rice ALT [Catalytic activity/Vol] 21 U/L Normal 14-59 [facility] Comment on above: Performed By: #### L IPID, T7, CMP, TSH #### [facility] [address] [address] [address] Sai Rice Anion gap [Moles/Vol] 9.0 mmol/L Normal [facility] Comment on above: Performed By: #### L IPID, T7, CMP, TSH #### [facility] [address] [place] [address] Dr. Sai Rice AST [Catalytic activity/Vol] 15 U/L Normal 15-37 [facility] Comment on above: Performed By: #### L IPID, T7, CMP, TSH #### [facility] [address] [address] [address] Sai Rice Bilirubin [Mass/Vol] 0.4 mg/dL Normal 0.2-1.0 [facility] Comment on above: Performed By: #### L IPID, T7, CMP, TSH #### [facility] [address] [address] [address] Sai Rice Calcium [Mass/Vol] 9.2 mg/dL Normal 8.5-10.1 [facility] Comment on above: Performed By: #### L IPID, T7, CMP, TSH #### [facility] [address] [address] [address] Sai Rice Chloride [Moles/Vol] 106 mmol/L Normal 98-107 [facility] Comment on above: Performed By: #### L IPID, T7, CMP, TSH #### [facility] [address] [address] [address] Sai Rice CO2 [Moles/Vol] 28.2 mmol/L Normal 21.0-32.0 [facility] Comment on above: Performed By: #### L IPID, T7, CMP, TSH #### [facility] [address] [address] [address] Sai Rice Creatinine [Mass/Vol] 0.76 mg/dL Normal 0.55-1.02 [facility] Comment on above: Performed By: #### L IPID, T7, CMP, TSH #### [facility] [address] [address] [address] Sai Rice EGFR-AF LIBYAN >60 Normal >=60 [facility] Comment on above: Performed By: #### L IPID, T7, CMP, TSH #### [facility] [address] [place] [address] Dr. Sai Rice EGFR-NON AF LIBYAN >60 Normal >=60 [facility] Comment on above: Performed By: #### L IPID, T7, CMP, TSH #### [facility] [address] [place] [address] Dr. Sai Rice Globulin (S) [Mass/Vol] 3.8 g/dL Normal [facility] Comment on above: Performed By: #### L IPID, T7, CMP, TSH #### [facility] [address] [address] [address] Sai Rice Glucose [Mass/Vol] 90 mg/dL Normal 74-106 [facility] Comment on above: Performed By: #### L IPID, T7, CMP, TSH #### [facility] [address] [address] [address] Sai Rice Potassium [Moles/Vol] 4.2 mmol/L Normal 3.5-5.1 [facility] Comment on above: Performed By: #### L IPID, T7, CMP, TSH #### [facility] [address] [address] [address] Sai Rice Protein [Mass/Vol] 7.6 g/dL Normal 6.4-8.2 [facility] Comment on above: Performed By: #### L IPID, T7, CMP, TSH #### [facility] [address] [place] [address] Dr. Sai Rice Sodium [Moles/Vol] 139 mmol/L Normal 136-145 [facility] Comment on above: Performed By: #### L IPID, T7, CMP, TSH #### [facility] [address] [place] [address] Dr. Sai Rice Urea nitrogen [Mass/Vol] 16.0 mg/dL Normal 7.0-18.0 [facility] Comment on above: Performed By: #### L IPID, T7, CMP, TSH #### [facility] [address] [place] [address] Dr. Sai Rice Urea nitrogen/Creatinine [Mass ratio] 21.1 mg/mg Normal [facility] Comment on above: Performed By: #### L IPID, T7, CMP, TSH #### [facility] [address] [place] [address] Dr. Sai Rice TSHon 09-01-2022 TSH 2.761 uIU/mL Normal 0.358-3.740 [facility] Comment on above: Performed By: #### L IPID, T7, CMP, TSH #### [facility] [address] [place] [address] Dr. Sai Rice VITAMIN D 25 OHon 09-01-2022 VIT D 25-OH 12.1 ng/mL Normal [facility] Comment on above: Performed By: #### V LEANN, IRON #### [facility] [address] [place] [address] Dr. Sai Rice VIT D RANGES SEE BELOW Normal [facility] Comment on above: Result Comment: <20 ng/mL Vit D deficient 20 - <30 ng/mL Vit D insufficient 30 - 100 ng/mL Vit D sufficient >100 ng/mL Potential Toxicity Performed By: #### V ITAD, IRON #### [facility] [address] [place] [address] Dr. Sai Rice MG MAMM SCREEN 3D DIANA CADon 01-08-2022 MG MAMM SCREEN 3D DIANA CAD Patient: FELIZ URBINA Exam Date: 01/08/2022 : 1960 Gender:F Ordering : DR ALBA DORANTES . Admission #: [id number] Family : Order #: [id number] CLICK HERE TO VIEW EXAM RADIOLOGY REPORT [...] lung cancer at age 41. LOCATION: [facility] BREAST COMPOSITION: Scattered areas fibroglandular [...] Carlos M.D. on 01/08/2022 at 15:48 Normal [facility] XR DEXA BONE DENSITYon 01-08 XR [...] by: MAMADOU CARLOS Date: 2022-01-08 14:02 Normal [facility] Encounters Encounter Date Encounter Type Care Provider Facility Start: 04-08-2023 ambulatory Facility:[facility] Start: 09-03-2022 Encounter for genera l adult medical examination without abnormal findings DR ALBA DORANTES [facility] Start: 09-01-2022 End: 09-02-[address] ALBA DORANTES Facility:[facility] Start: 09-01-2022 End: 09-02-2022 Encounter for general adult medical examination without abnormal findings DR ALBA DORANTES Facility:[facility] Start: 06-05-[address] ALBA DORANTES Facility :[facility] Start: 01-08-2022 End: 01-09-[address] ALBA DORANTES Facility:[facility] Payers Date Payer Category Payer Medicare [id number] 2017 Unknown 1960 Medicare [id number] 1960 Self-pay [id number] 1960 Unknown [id number] 1960 Unknown [id number] 2.16.84 [id number] 1960 Unknown [id number] 2.16.84 [id number] 1960 Unknown [id number] 2.16.84 [id number] 1960 Unknown [id number] 2.16.8 [id number] Summary Purpose Family History No Family History Records FoundNo Family History Records Found Advance Directives No Advanced Directives Records FoundNo Advanced Directives Records Found Additional Source Comments INFORMATION SOURCE (unrecogn ized section and content) DATE CREATED AUTHOR 10/01/2022 [facility] DATE CREATED AUTHOR AUTHOR'S ORGANIZ ATION 05/25/2023 [facility] FOR RECORDS PERTAINING TO PATIENTS WHO ARE [...] BE BASED ON THE PRIMARY CLINICAL RECORDS. [facility]. provides no warranty or guarantee of the accuracy or completeness of information in this document.
[2025-06-29 09:19] LABS: Hematocrit 43.2 % (36.0-48.0); Hemoglobin 15.2 g/dL (12.0-16.0); Immature Granulocytes Abs Auto 0.04 10^3/uL (0.00-0.03); Immature Granulocytes Pct Auto 0.4 % (0.0-0.5); Lymphocytes Absolute Auto 2.7 10^3/uL (1.2-3.8); Mean Corpuscular HGB Conc 35.2 g/dL (29.9-35.2); Mean Corpuscular Hemoglobin 32.4 pg (26.7-34.0); Mean Corpuscular Volume 92.1 fL (81.0-99.0); Platelet Count 322 10^3/uL (150-450); Red Blood Count 4.69 10^6/uL (4.20-5.40); White Blood Count 9.2 10^3/uL (4.0-11.0)
[2025-06-29 11:17] LABS: Alanine Aminotransferase 22 U/L (14-59); Albumin Globulin Ratio 1.1; Albumin Level 4.0 g/dL (3.4-5.0); Alkaline Phosphatase 76 U/L (46-116); Anion Gap 13.3; Aspartate Amino Transferase 14 U/L (15-37); Blood Urea Nitrogen 15.0 mg/dL (7.0-18.0); Calcium 9.4 mg/dL (8.5-10.1); Carbon Dioxide 27.3 mmol/L (21.0-32.0); Chloride 105 mmol/L (98-107); Cholesterol 206 mg/dL (<=200); Estimated GFR (African America >60 (>=60 mL/min/1.73m^2); Estimated GFR (Non-African Ame >60 (>=60 mL/min/1.73m^2); Free T3 0.73 pg/mL (2.18-3.98); Globulin 3.8 g/dL; Glucose 86 mg/dL (74-106); HDL Cholesterol 60 mg/dL (40-60); Potassium 4.6 mmol/L (3.5-5.1); Sodium 141 mmol/L (136-145); Thyroid Stimulating Hormone 2.797 uIU/mL (0.358-3.740); Total Protein 7.8 g/dL (6.4-8.2); Triglycerides 111 mg/dL (<=150); VLDL CHOLESTEROL 22.2 mg/dL
== END 2025-06-29 08:39 | disposition home or self-care (01) ==
LOC: LAB 08:41
PROVIDERS: PCP Family Medicine; Visit Provider Family Medicine
DX: Z00.00 Encounter for general adult medical examination without abnormal findings (principal); R53.83 Other fatigue; E03.9 Hypothyroidism, unspecified; Z12.11 Encounter for screening for malignant neoplasm of colon
CPT/HCPCS: 36415; 80053; 80061; 83036; 84436; 84443; 84481; 85025

== ENCOUNTER 2025-08-08 10:26 | Outpatient (OUT) | payer BC, MEDICARE, SELFPAY ==
--- OUTSIDE RECORDS SUMMARY | 2025-08-08 10:31 | XMS_ITS | Clinical Summary ---
Author Organization [facility] Address [id number] [address] 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 Name Role Phone George Pantoja MD Primary Care Provider [phone] Allergies No known active allergies Medications MedicationSigDispense QuantityRefillsLast FilledStart DateEnd DateStatus atorvastatin (LIPITOR) 10 mg tablet Take 10 mg by mouth.Active baclofen (LIORESAL) 10 mg tablet Take 10 mg by mouth.Active DULoxetine (CYMBALTA) 60 mg capsule Take 60 mg by mouth.Active lisinopril (PRINIVIL,ZESTRIL) 10 mg tablet Take 10 mg by mouth.Active metFORMIN (GLUCOPHAGE) 500 mg tablet Active oxyCODONE-acetaminophen (PERCOCET) 5-325 mg per tablet Active gabapentin (NEURONTIN) 300 mg capsule Take 1 capsule (300 mg total) by mouth See Admin Instructions. Titrate 81 capsule Active Social History Tobacco UseTypesPacks/DayYears UsedDateSmoking Tobacco: Every DayCigarettes Alcohol UseStandard Drinks/WeekCommentsNo0 (1 standard drink = 0.6 oz pure alcohol)ChildcareAnswerDate BuqskwowQdtlmdyudWvjfqtl41/10/2019EmploymentAnswer Date TdvspwbiPxwifgpmlfKkdpmzd01/10/2019Purpose - LifeAnswerDate RecordedPurpose and direction in nysyDiiwmux21/10/2021CommentsUnknownSex and Gender InformationValueDate RecordedSex Assigned at BirthNot on fileLegal SexFemale 05/15/2015 11:58 AM EDTGender IdentityNot on fileSexual OrientationNot on file Last Filed Vital Signs Vital SignReadingTime TakenCommentsBlood Armgnwtm863/8709 11:28 AM EDT Gsfas632206/22/2017 11:28 AM EDTTemperature--Respiratory Rtoh112606/22/2017 11:28 AM EDTOxygen Saturation--Inhaled Oxygen Concentration--Xquyoh69.3 kg (219 lb) 06/22/2017 11:28 AM YUPKmyybb596.6 cm (5' 4 )06/22/2017 11:28 AM EDTBody Mass Index37.5909 11:28 AM EDT Plan of Treatment Health MaintenanceDue DateLast DoneCommentsDepression Qyglhwsrt65/26/1971Tobacco Egolehoeh68/26/1971Adult BMI Ilpicogab67/26/1977DTaP,Tdap and Td Vaccines (1 - Tdap)1978Zoster (Shingles) Vaccine (1 of 2)2009Fall Risk Screening 2024Influenza Jczdchb3906/12/2025 Medical Devices ImplantedTypeAreaManufacturerDevice IdentifierShelf Expiration DateModel / Serial / LotScs Insurance Care Teams Team MemberRelationshipSpecialtyStart Date George Pantoja MD [facility]06/05/17
--- OUTSIDE RECORDS SUMMARY | 2025-08-08 10:31 | XMS_ITS | Clinical Summary ---
Author Organization [facility] Address [address] [place] [address] Care Team Providers Care Bit Sharpener Name Role Phone Unavailable Primary Care Provider Unavailabl e Social History Tobacco UseTypesPacks/DayYears UsedDateSmoking Tobacco: Never Assessed CommentsUnknownSex and Gender InformationValueDate RecordedSex Assigned at Not on fileLegal QqtUxowty78/15/2023 6:43 PM EDTGender IdentityNot on fileSexual OrientationNot on file Last Filed Vital Signs Vital SignReadingTime TakenCommentsBlood Bhofxhwm455/7804 12:00 PM EDT Pulse--Temperature--Respiratory Rate--Oxygen Saturation--Inhaled Oxygen Concentration--Bpoxak71.2 kg (212 lb)01/19/2018 12:00 PM JEZBmtczh257 cm (5' 3 ) 01/19/2018 12:00 PM EDTBody Mass Index37.55001/19/2018 12:00 PM EDT Plan of Treatment Not on file
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
== END 2025-08-08 10:27 | disposition home or self-care (01) ==
LOC: CT 10:28
PROVIDERS: PCP Family Medicine; Visit Provider Family Medicine
DX: S00.93XA Contusion of unspecified part of head, initial encounter (principal); R07.89 Other chest pain
CPT/HCPCS: 70450; 71100